=== PATIENT | male | born 1945 | race Caucasian/White ===

== ENCOUNTER 2020-06-08 14:22 | Outpatient (CLI) | payer MEDICARE, MEDICAID, SELFPAY ==
--- NOTE | ~2020-06-08 | US_ITS ---
EXAMINATION: US retroperitoneal comp DATE: 06/08/2020 15:42 INDICATION: Chronic kidney disease stage III TECHNIQUE: Multiple grayscale and Doppler ultrasound images of the kidneys were obtained. COMPARISON: 03/23/2019 FINDINGS: The right kidney measures 12.7 x 4.4 x 5.6 cm and contains a 5.5 cm cyst. The left kidney m easures 10.6 x 6.4 x 5.2 cm and contains a 3.1 cm cyst. The kidneys demonstrate increased parenchymal echogenicity. There is no hydronephrosis. The bladder is normal. IMPRESSION: 1. Medical renal disease. Reviewed, dictated and finalized at location A. IMPRESSION: 1. Medical renal disease.
== END 2020-06-08 14:23 | disposition home or self-care (01) ==
LOC: ANHIMG 14:33
PROVIDERS: PCP Family Medicine; Visit Provider Internal Medicine Nephrology
DX: N18.3 Chronic kidney disease, stage 3 (moderate) (principal)
CPT/HCPCS: 76770

== ENCOUNTER 2021-04-30 12:45 | Emergency (ER) | payer MEDICARE, MEDICAID, SELFPAY ==
[2021-04-30] VITALS (11 sets, daily range): BP systolic 163–185; BP diastolic 67–99; PULSE 70–91; RESP 12–22; TEMP 36.8; O2SAT 89–99
--- NOTE | ~2021-04-30 | US_ITS ---
EXAMINATION: US right upper quadrant EXAM DATE: 04/30/2021 13:41 INDICATION: Right upper quadrant pain. TECHNIQUE: Multiple grayscale and Doppler images of the abdomen right upper quadrant were obtained (b y a technologist who performed the scan) and subsequently reviewed. There is no prior study for guerita garcia. FINDINGS: The pancreatic head and body are normal in appearance. The pancreatic tail is not visualized. The l iver has normal echogenicity and contour. There are no focal liver lesions identified. There is no evidence of intrahepatic biliary duct dilation. Portal venous flow was seen in the hepatopedal, nor mal direction and has normal Doppler waveform. No right-sided hydronephrosis. Right renal cyst measu ring 4-5 cm. Common bile duct measures 5 mm, which is normal. The gallbladder wall is normal in thickness, with ex pected amount of distention. No sonographic evidence of pericholecystic fluid. There is cholelithia sis. Technologist performing exam reports patient did not demonstrate sonographic Garcia's sign. P sharif note that this sign is less reliable in patients who have received pain medication. IMPRESSION: 1. Unremarkable abdominal ultrasound exam. Reviewed, dictated and finalized at location B.
[2021-04-30 12:57] LABS: Glucose Point of Care 205 mg/dl (65-105)
[2021-04-30] MEDS: ONDANSETRON INJ 4 MG/2 ML VIAL IV PUSH (13:43)
[2021-04-30 14:00] LABS: Basophils Absolute Auto 0.1 K/mm3 (0.0-0.1); Basophils Percent Auto 0.6 % (0.2-1.2); Eosinophils Absolute Auto 0.2 K/mm3 (0-0.3); Eosinophils Percent Auto 1.6 % (0-4.4); Hematocrit 43.3 % (42.0-52.0); Hemoglobin 14.5 g/dL (14.0-18.0); Immature Granulocyte Absolute 0.08 K/mm3 (0.00-0.031); Immature Granulocyte Percent A 0.7 % (0-0.5); Lymphocytes Absolute Auto 1.21 K/mm3 (0.9-3.2); Lymphocytes Percent Auto 10.1 % (18.3-44.2); Mean Corpuscular HGB Conc 33.5 g/dl (32-36); Mean Corpuscular Volume 92.5 fl (80-100); Mean Platelet Volume 10.3 fl (7.4-10.4); Monocytes Absolute Auto 1.3 K/mm3 (0.1-0.6); Monocytes Percent Auto 11.1 % (2.6-8.5); Neutrophils Absolute Auto 9.1 K/mm3 (1.3-6.7); Neutrophils Percent Auto 75.9 % (45.5-73.1); Platelet Count Result 196 k/mm3 (150-375); Red Blood Count 4.68 M/mm3 (4.6-6.20); Red Cell Distribution Width 14.4 % (11.5-14.5)
[2021-04-30 14:12] LABS: Alanine Aminotransferase 31 U/L (4-50); Albumin Level 4.3 g/dL (3.5-5.1); Alkaline Phosphatase 61 U/L (38-126); Anion Gap 11 mmol/L (8-16); Aspartate Amino Transferase 35 U/L (17-59); Bilirubin,Total 1.6 mg/dL (0.2-1.3); Blood Urea Nitrogen 25 mg/dL (9-20); Calcium 9.6 mg/dL (8.4-10.2); Carbon Dioxide 25 mmol/L (22-30); Chloride 102 mmol/L (98-107); Estimated CRCL calculation 58 ml/min; Estimated Glomerular Filt Rate 49; Glucose 203 mg/dL (75-110); Lipase 264 U/L (23-300); Potassium 4.2 mmol/L (3.4-5.0); Sodium 138 mmol/L (137-145)
[2021-04-30] MEDS: MORPHINE SULFATE (*CRX) 4 MG/ML INJ IV PUSH (14:40)
--- NOTE | 2021-04-30 15:40 | ED.GENADULT ---
HPI - General Adult General Chief complaint: Abdominal Pain Stated complaint: ABD PAIN Time Seen by Provider: 04/30/21 12:49 History of Present Illness HPI narrative: Patient is a 76-year-old male who presents ER with abdominal pain as well as nausea vomiting. Abdominal pain began earlier today. This along his mid and lower abdomen. Waxes and wanes in intensity. Has some intense pain that will cause some vomiting. No diarrhea or constipation. He is passing gas without issue. Has history of appendectomy. No urinary issues. Related Data Home Medications Medication Instructions Recorded Confirmed cranberry fruit 450 mg tablet 450 mg PO DAILY 02/14/21 multivitamin 1 tablet PO DAILY 02/14/21 omega-3 fatty acids 1,000 mg 1,000 mg PO DAILY 02/14/21 capsule turmeric root extract 500 mg 500 mg PO DAILY 02/14/21 capsule vitamin C 50 mg-biotin 1,250 mcg tablet PO 02/14/21 chewable tablet Allergies Allergy/AdvReac Type Severity Reaction Status Date / Time cephalexin Allergy Unknown Nausea Verified 04/30/21 13:02 lisinopril Allergy Unknown vascular Verified 04/30/21 13:02 rash Sulfa (Sulfonamide Allergy Unknown tongue Verified 04/30/21 13:02 Antibiotics) swelling Review of Systems Review of Systems: All systems reviewed & are unremarkable except as noted in HPI and below Constitutional: Constitutional: Denies chills, Denies fever(s) and Denies weakness ENT: Denies nasal congestion and Denies sore throat Cardiovascular: Cardiovascular: Denies chest pain and Denies radiating jaw, neck or arm pain Respiratory: Respiratory: Denies cough and Denies dyspnea Gastrointestinal: Gastrointestinal: Reports abdominal pain, Denies constipation, Denies heartburn, Denies diarrhea, Reports nausea and Reports vomiting Genitourinary: Genitourinary: Denies hematuria, Denies dysuria and Denies urinary frequency [facility] Past Medical History Medical History (Updated 04/30/21 @ 16:49 by Iftikhar Cassidy MD) Abdominal aortic aneurysm, without rupture Essential (primary) hypertension Gout Hypertensive chronic kidney disease with stage 1 through stage 4 chronic kidney disease, or unspecified chronic kidney disease Morbid obesity Obstructive sleep apnea (adult) (pediatric) 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 HEAD: Normocephalic, atraumatic. ENT: Mucous membranes moist. CHEST: Clear to auscultation. No respiratory distress. HEART: Irregular regular rate and rhythm. Normal peripheral pulses. ABDOMEN: Soft, mild right upper quadrant tenderness, protuberant abdomen, normal active bowel sounds. EXTREMITIES: Normal range of motion. 1+ edema. SKIN: Warm, dry, no rash. NEURO: Alert and oriented x3. PSYCH: Normal mood and affect. Course Course Emergency Course: Pain improved with morphine. Reports discomfort is in lower abdomen not right upper quadrant. Will give pain medication nausea medication for home. Educated on cholelithiasis and low-fat diet. Needs follow-up with general surgery. No right upper quadrant tenderness on repeat exam. Also due to patient's body habitus when he lays down flat and falls asleep he has transient drop in his pulse oximeter reading. Likely represents LILLY. Also patient found to be in atrial fibrillation. This is new diagnosis. He has a chads 2 score of 3. I have contacted the cardiology o
--- NOTE | 2021-04-30 15:51 | ECG_ITS ---
Measurements Intervals [place] Rate: 79 P: [place]: 0 QRS: 12 QRSD: 105 T: 51 QT: 396 QTc: 456 Interpretive Statements ATRIAL FIBRILLATION BORDERLINE ST-T WAVE ABNORMALITY- HIGH LATERAL LEADS BASELINE ARTIFACT- I, II, III, AVR, AVL, AVF, V1-V6 ABNORMAL ECG Electronically Signed On 04-30-2021 16:06:43 CDT by Mike Izquierdo D.O.
[2021-04-30] MEDS: RIVAROXABAN 20 MG TABLET PO (16:38)
== END 2021-04-30 17:00 | disposition home or self-care (01) ==
PROVIDERS: Emergency Provider Emergency Medicine; PCP Family Medicine
DX: K80.20 Calculus of gallbladder without cholecystitis without obstruction (principal); I48.91 Unspecified atrial fibrillation; M10.9 Gout, unspecified; I12.9 Hypertensive chronic kidney disease with stage 1 through stage 4 chronic kidney disease, or unspecified chronic kidney disease; E11.22 Type 2 diabetes mellitus with diabetic chronic kidney disease; N18.9 Chronic kidney disease, unspecified; E11.40 Type 2 diabetes mellitus with diabetic neuropathy, unspecified; G47.33 Obstructive sleep apnea (adult) (pediatric); Z79.84 Long term (current) use of oral hypoglycemic drugs
CPT/HCPCS: 36415; 76705; 80053; 82948; 83690; 85025; 93005; 96374; 96375; 99284; A9270; J2270; J2405

== ENCOUNTER 2022-03-12 00:03 | Observation (INO) | payer MEDICARE, MEDICAID, SELFPAY ==
[2022-03-12] VITALS (8 sets, daily range): BP systolic 133–164; BP diastolic 49–68; PULSE 56–62; RESP 14–19; TEMP 36.2–37.4; O2SAT 95–99; BMI 40.6
--- NOTE | ~2022-03-12 | XR_ITS ---
EXAMINATION: XR chest 2V DATE: 03/12/2022 02:03 INDICATION: Chest pain. TECHNIQUE: Frontal and lateral views of the chest were obtained. COMPARISON: CT abdomen and pelvis 11/08/2018, chest CT 08/12/2013 FINDINGS: Calcified right lung nodules and calcified right hilar lymph nodes are consistent with old granulomatous disease. There are mild airspace opacities in the lower lung zones. No pleural effusion or pneumothorax. The heart size is normal. IMPRESSION: 1. Mild airspace opacities in the lower lung zones, likely atelectasis. Reviewed, dictated and finalized at location A.
--- NOTE | ~2022-03-12 | CT_ITS ---
EXAMINATION: CTA chest PE protocol DATE: 03/12/2022 11:41 INDICATION: Pleuritic chest pain. TECHNIQUE: Computed tomography angiography (CTA) of the chest was performed with 100 mL Omnipaque-350 intravenous contrast timed to evaluate the pulmonary arteries. Coronal maximum intensity projection 3D-reconstructions were created by the technologist. Automated exposure control and iterative reconst ruction technique were employed. The dose-length product was 1063.52 mGy-cm. COMPARISON: CT abdomen and pelvis 11/08/2018 FINDINGS: There is mild emphysema. The lungs demonstrate mild atelectasis. Calcified right lung nodul es and calcified right hilar lymph nodes are consistent with old granulomatous disease. There is smoo th septal thickening in the lungs, consistent with mild pulmonary edema. No pleural effusion. The hea rt size is normal. No pericardial effusion. There is no pulmonary embolus. There is moderate thoracic spondylosis. IMPRESSION: 1. No pulmonary embolus. 2. Mild emphysema. 3. Mild pulmonary edema. Reviewed, dictated and finalized at location A.
--- NOTE | 2022-03-12 00:15 | ECG_ITS ---
Measurements Intervals [place] Rate: 60 P: 73 MS: 243 QRS: 5 QRSD: 98 T: 75 QT: 441 QTc: 441 Interpretive Statements SINUS RHYTHM WITH FIRST DEGREE AV BLOCK COMPARED TO ECG 04/30/2021 15:56:13 SINUS RHYTHM NOW PRESENT FIRST DEGREE AV BLOCK NOW PRESENT Electronically Signed On 03-13-2022 13:22:23 CDT by Melida Corey M.D.
[2022-03-12 00:25] LABS: Basophils Absolute Auto 0.1 K/mm3 (0.0-0.1); Basophils Percent Auto 0.8 % (0.2-1.2); Eosinophils Absolute Auto 0.5 K/mm3 (0-0.3); Eosinophils Percent Auto 3.7 % (0-4.4); Hematocrit 38.3 % (42.0-52.0); Hemoglobin 12.7 g/dL (14.0-18.0); Immature Granulocyte Percent A 0.8 % (0-0.5); Lymphocytes Absolute Auto 1.84 K/mm3 (0.9-3.2); Lymphocytes Percent Auto 14.5 % (18.3-44.2); Mean Corpuscular HGB Conc 33.2 g/dl (32-36); Mean Corpuscular Hemoglobin 30.8 pg (26-34); Mean Corpuscular Volume 92.7 fl (80-100); Monocytes Absolute Auto 1.2 K/mm3 (0.1-0.6); Monocytes Percent Auto 9.2 % (2.6-8.5); Platelet Count Result 292 k/mm3 (150-375); Red Blood Count 4.13 M/mm3 (4.6-6.20); Red Cell Distribution Width 13.5 % (11.5-14.5); White Blood Count 12.7 K/mm3 (4.5-10.0)
[2022-03-12 00:36] LABS: INR 2.6; Prothrombin Time 26.6 Seconds (11.1-14.7)
[2022-03-12 00:37] LABS: Partial Thromboplastin Time 66.3 SECONDS (22.3-36.8)
[2022-03-12 00:43] LABS: Alanine Aminotransferase 25 U/L (4-50); Albumin Level 3.8 g/dL (3.5-5.1); Alkaline Phosphatase 64 U/L (38-126); Anion Gap 4 mmol/L (8-16); Aspartate Amino Transferase 49 U/L (17-59); Blood Urea Nitrogen 41 mg/dL (9-20); Calcium 8.4 mg/dL (8.4-10.2); Carbon Dioxide 33 mmol/L (22-30); Chloride 97 mmol/L (98-107); Estimated CRCL calculation 45 ml/min; Estimated Glomerular Filt Rate 37; Glucose 214 mg/dL (65-110); Lipase 211 U/L (23-300); Potassium 4.7 mmol/L (3.4-5.0); Sodium 134 mmol/L (137-145)
[2022-03-12 00:48] LABS: Troponin I < 0.012 ng/mL (0.000-0.034)
--- NOTE | 2022-03-12 01:26 | ED.CHESTPAIN ---
HPI - Chest Pain General Chief Complaint: Chest Pain Stated Complaint: CHEST PAIN, BACK PAIN Time Seen by Provider: 03/12/22 01:19 Source: patient Limitations: no limitations History of Present Illness HPI narrative: Pt presents with chest pain since about 1700 tonight. Pt says it is constant. Pt also complains of SOB with exertion for the last two weeks. Pt sasy the CP goes through to his back. MD complaint: chest pain and chest heaviness Onset (ago): hour(s) (8) Timing of current episode: constant Prior episodes: No Onset: during rest and during exertion Pain location: substernal Pain radiation: back Severity: moderate Quality: heaviness Relieving factors: nothing Exacerbating factors: exertion Risk Factors Coronary artery disease risk factors: diabetes, hyperlipidemia and hypertension Related Data Home Medications Medication Instructions Recorded Confirmed cranberry fruit 450 mg tablet 450 mg PO DAILY 02/14/21 09/18/21 multivitamin 1 tablet PO DAILY 02/14/21 09/18/21 omega-3 fatty acids 1,000 mg 1,000 mg PO DAILY 02/14/21 09/18/21 capsule turmeric root extract 500 mg 500 mg PO DAILY 02/14/21 09/18/21 capsule vitamin C 50 mg-biotin 1,250 mcg tablet PO 02/14/21 09/18/21 chewable tablet oregano oil 1,500 mg capsule mg PO PRN 07/11/21 09/18/21 furosemide 40 mg tablet 40 mg PO .prn tablet 02/21/22 Allergies Allergy/AdvReac Type Severity Reaction Status Date / Time cephalexin Allergy Unknown Nausea Verified 02/21/22 10:40 lisinopril Allergy Unknown vascular Verified 02/21/22 10:40 rash Sulfa (Sulfonamide Allergy Unknown tongue Verified 02/21/22 10:40 Antibiotics) swelling Review of Systems Review of Systems: All systems reviewed & are unremarkable except as noted in HPI and below PMFSH Past Medical History Medical History Abdominal aortic aneurysm, without rupture Essential (primary) hypertension Gout History of varicella Hypertensive chronic kidney disease with stage 1 through stage 4 chronic kidney disease, or unspecified chronic kidney disease LAE (left atrial enlargement) Morbid obesity Obstructive sleep apnea (adult) (pediatric) 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 Sibling AIDS Sibling Ovarian carcinoma Sibling Lung cancer Other Family history of malignant neoplasm Social History Social History Smoking packs per day: 3 Smoking cigarettes per day: 60.0 Years smoked: 50 Smoking pack-years: 150.00 Smoking status: Former smoker Tobacco type: cigarettes Smoking end date: 11/17/91 Alcohol intake: never Exam Const: General: cooperative Nutritional Appearance: overweight Orientation/consciousness: patient oriented x3 Limitations: no limitations Neck: Neck: normal visual inspection and full ROM Chest: Chest palpation & inspection: normal inspection of the chest Resp: Effort & Inspection: normal respiratory effort Auscultation: clear to auscultation bilaterally Cardio: Rate: regular rate Rhythm: regular rhythm GI: GI Palp: Yes Soft to palpation Auscultation: normal bowel sounds Skin: General skin exam: normal color Neuro: General: oriented to person and patient oriented x3 Cranial nerves: Yes CN's II-XII intact bilaterally Cognition (Neuro): normal cognition Speech: normal speech Gait exam (Neuro): Normal gait present Motor exam (neuro): 5/5 motor strength
--- NOTE | 2022-03-12 01:56 | PC.NURSE ---
Pt to XY at this time.
[2022-03-12] MEDS: NITROGLYCERIN 0.4 MG/HR PATCH 1 PATCH TRANSDERM ×2 (02:37→08:18)
--- NOTE | 2022-03-12 03:35 | ADMGEN ---
This patient, Boris Hernandez, was admitted to [facility] Room 313-01. Patient/family oriented to hospital policies and general routines including ID bracelet, bed and alarms, visiting hours, pain management, procedures, bathroom and other care routines, personal items, smoking policy, room service/diet, and visiting hours. Information on how to activate the Rapid Response Team has been discussed. Patient/Family are encouraged to report perceived risks to care and to ask questions if they do not understand what they are told or what they should do.
[2022-03-12 03:40] LABS: Troponin I < 0.012 ng/mL (0.000-0.034)
[2022-03-12 06:40] LABS: Troponin I < 0.012 ng/mL (0.000-0.034)
[2022-03-12] MEDS: NEBIVOLOL HCL 5 MG TABLET 20 MG PO (10:45)
[2022-03-12] MEDS: allopurinoL 300 MG TABLET PO (10:46)
[2022-03-12] MEDS: ATORVASTATIN 10 MG TABLET PO (10:46)
[2022-03-12] MEDS: FUROSEMIDE 40 MG TABLET PO (10:46)
[2022-03-12 11:33] LABS: Hemoglobin A1C 6.3 % (<5.7)
--- NOTE | 2022-03-12 15:54 | PM.SD2 ---
Same Day Admit/Disch: HPI History of Present Illness Chief complaint: Chest Pain Narrative: Date of service: 03/12/2022 Boris Hernandez is a 76 year old male with a history of abdominal aortic aneurysm monitored by his PCP, hypertension, chronic kidney disease established with Nephrology, LILLY on CPAP, and type 2 diabetes mellitus, atrial fibrillation on chronic anticoagulation who presented to the emergency department on 03/12/2022 with complaints of right-sided chest discomfort. He starts by telling me that two things have been bothering him before. The first is that he has had a productive cough constantly for the past week or two. The only thing that has seemed to help it is oil of oregano. He also states that for the past 2-3 weeks he has been more short of breath. Last night around 5:00 p.m. he developed right-sided chest discomfort near his shoulder and his right upper chest wall. He stated that with this it was hard for him to breathe. He described it as ?like a sprained ankle? in his chest. He noted this pain was worse with deep breaths or with movement. He states he did not want to move as if he moved too much it felt as though someone was punching him. Around 11 p.m. he called EMS because the pain was not improving. On arrival to the ED, his vital signs were stable, troponin negative, EKG showed sinus rhythm with 1st degree av block, and CXR showed mild airspace opacities of the lower lung zones. He was admitted to the hospitalist service for further evaluation and management. At the time of my evaluation he stated he was feeling about 10% better. He had no pain unless he was moving. He tells me he felt the pain was ?due to bone and muscle. He denied hemoptysis. Denied palpitations. Denied increased edema of his lower extremities, but did state he does have some chronic mild edema for which he had recently been started on Lasix per his oven baker, Dr. Gomse. He has been compliant with his Xarelto. His cough has improved. He does endorse decreased activity tolerance which she attributes to neuropathy in his lower extremities restricting his activity. Atypical chest pain not concerned for cardiac etiology. ACS ruled out by negative troponins. Most likely musculoskeletal based on history. Due to pleuritic nature of pain, CTA of the chest was performed to rule out pulmonary embolism. CTA was negative for PE but did show mild pulmonary edema. Most likely mild pulmonary edema triggered his cough which subsequently resulted in musculoskeletal chest discomfort. He maintained adequate oxygen saturations and did not require supplemental oxygen. Clinical picture not consistent with CHF exacerbation. Will increase his furosemide to 40 mg once daily dosing. He states he is currently taking every other day. He does have chronic kidney disease, therefore will repeat a BMP in 1 week to ensure renal function is tolerating increased dose of furosemide. CHF education provided and heart healthy diet reinforced. He will follow-up with his oven baker as scheduled. JASPER inhibitor use considered as etiology of cough, however patient endorses recent productive cough that has improved, making this less likely. With regards to his musculoskeletal pain, will continue with supportive care. Tylenol as needed for pain. Ice and heat as needed. Lidocaine patch for comfort. His pain was overall well controlled and he felt comfortable with plans for discharge home. Discussed worrisome chest pain symptoms for which to seek emergency care. He will follow-up his PCP in 1 week for further monitoring. [facility] Past Medical History Medical History (Updated 03/12/22 @ 16:19 by Angelita Bassett PA-C) Abdominal aortic aneurysm, without rupture Atrial fibrillation CHF (congestive heart failure) Essential (primary) hypertension Gout History of varicella Hypertensive chronic kidney disease with stage 1 through stage 4 chronic kidney disease, or unspecified chronic kidney
[2022-03-12] MEDS: ACETAMINOPHEN 325 MG TABLET 650 MG PO (16:14)
[2022-03-12] MEDS: LIDOCAINE 5% PATCH 1 PATCH TRANSDERM (16:15)
== END 2022-03-12 17:10 | disposition home or self-care (01) ==
LOC: ANHED 02:13 → ANH3MEDSUR 03:09
PROVIDERS: Physician Assistant; Admitting Provider Internal Medicine; Emergency Provider Emergency Medicine; PCP Family Medicine; Visit Provider Internal Medicine
DX: R07.89 Other chest pain (principal); R05.9 Cough, unspecified; E78.5 Hyperlipidemia, unspecified; I71.4 Abdominal aortic aneurysm, without rupture; G47.33 Obstructive sleep apnea (adult) (pediatric); I48.91 Unspecified atrial fibrillation; Z79.01 Long term (current) use of anticoagulants; I50.9 Heart failure, unspecified; N18.9 Chronic kidney disease, unspecified; I13.0 Hypertensive heart and chronic kidney disease with heart failure and stage 1 through stage 4 chronic kidney disease, or unspecified chronic kidney disease; E11.22 Type 2 diabetes mellitus with diabetic chronic kidney disease; E11.42 Type 2 diabetes mellitus with diabetic polyneuropathy; E66.01 Morbid (severe) obesity due to excess calories; Z68.41 Body mass index [BMI] 40.0-44.9, adult; Z87.891 Personal history of nicotine dependence; E11.65 Type 2 diabetes mellitus with hyperglycemia
CPT/HCPCS: 36415; 71046; 71275; 80053; 83036; 83690; 84484; 85025; 85610; 85730; 93005; 99285; A9270; G0378; Q9967

== ENCOUNTER 2022-05-10 09:28 | Outpatient (CLI) | payer MEDICARE, MEDICAID, SELFPAY ==
--- NOTE | ~2022-05-10 | US_ITS ---
EXAMINATION: US aorta DATE: 05/10/2022 10:18 INDICATION: Abdominal aortic aneurysm without rupture TECHNIQUE: Grayscale, color Doppler, and pulsed Doppler images of the aorta and common iliac arteries were obtained. COMPARISON: CT dated 11/08/2018 FINDINGS: The proximal aorta measures 2.2 cm. The mid aorta measures 2.8 cm. Fusiform infrarenal abdominal aort ic aneurysm with the distal aorta measuring up to 5.0 cm. The right common iliac artery measures 1.0 cm. The left common iliac artery measures 1.1 cm. IMPRESSION: 1. Unchanged 5.0 cm fusiform infrarenal abdominal aortic aneurysm. Reviewed, dictated and finalized at location B.
== END 2022-05-10 09:29 | disposition home or self-care (01) ==
PROVIDERS: PCP Family Medicine; Visit Provider Physician Assistant
DX: I71.4 Abdominal aortic aneurysm, without rupture (principal)
CPT/HCPCS: 76775

== ENCOUNTER 2022-10-07 11:55 | Inpatient (IN) | payer MEDICARE, MEDICAID, SELFPAY ==
[2022-10-07] VITALS (35 sets, daily range): BP systolic 115–155; BP diastolic 46–78; PULSE 54–67; RESP 12–19; TEMP 36.6–37.1; O2SAT 95–100; BMI 42.7
--- NOTE | ~2022-10-07 | US_ITS ---
EXAMINATION: US renal BI DATE: 10/07/2022 23:18 INDICATION: Acute on chronic renal failure TECHNIQUE: Multiple grayscale and Doppler ultrasound images of the kidneys were obtained. COMPARISON: 06/08/2020 FINDINGS: The right kidney measures 14.4 x 5.6 x 6.0 cm. The left kidney measures 9.8 x 5.5 x 6.4 cm. The kidne ys demonstrate increased parenchymal echogenicity and cortical scarring/lobulation. 6.2 cm simple rig ht upper pole cyst. 3.0 cm left midpole simple cyst. There is no hydronephrosis. The bladder is myles l. IMPRESSION: Bilateral simple cysts. Medical renal disease. Reviewed, dictated and finalized at location K. ENTARY MATH TUTOR
--- NOTE | ~2022-10-07 | US_ITS ---
EXAMINATION: US venous doppler [facility] DATE: 10/07/2022 15:13 INDICATION: Lower limb edema. TECHNIQUE: Grayscale ultrasound images without and with compression and Doppler ultrasound images of the bilateral lower extremity veins were obtained. COMPARISON: None. FINDINGS: The visualized portions of right common femoral vein, profunda (deep) femoral vein, femoral vein, pop liteal vein, posterior tibial veins, and greater saphenous vein outflow are patent. There is thrombus in the right peroneal veins. The visualized portions of left common femoral vein, profunda femoral vein, femoral vein, popliteal v ein, peroneal veins, posterior tibial veins, and greater saphenous vein outflow are patent. IMPRESSION: 1. Deep vein thrombosis involving the right peroneal veins. Reviewed, dictated and finalized at location A. ILIZER MIXER
--- NOTE | ~2022-10-07 | CT_ITS ---
EXAMINATION: CT brain wo con DATE: 10/08/2022 15:57 INDICATION: pupils different sizes . TECHNIQUE: Computed tomography (CT) of the head was performed without intravenous contrast. The mA wa s adjusted according to patient size. Iterative reconstruction technique was employed. The dose-lengt h product was 605.33 mGy-cm. COMPARISON: None FINDINGS: No acute intracranial hemorrhage or extra-axial fluid collection. No hydrocephalus, mass, or herniation. No acute ischemic infarct. Unremarkable dural venous sinus attenuation. No acute osseous abnormality. The aerated spaces are clear. Mild atrophy and chronic white matter change. Atherosclerotic intracranial calcification. Chronic lef t parietal infarct. IMPRESSION: No acute intracranial process. Reviewed, dictated and finalized at location K. AISER IRRIGATION TAX
--- NOTE | ~2022-10-07 | XR_ITS ---
EXAMINATION: XR chest 2V 10/07/2022 13:07 INDICATION: CHF. Lower extremity swelling. PROCEDURE: 2 view chest COMPARISON: 03/12/2022 FINDINGS: The lungs are clear. The cardiomediastinal silhouette is within normal limits. There are no pleural effusions. There is no pneumothorax suspected. There are calcified granulomas of the rig ht lung. IMPRESSION: 1: NO ACUTE CARDIOPULMONARY DISEASE. Reviewed, dictated and finalized at location B. SPECIALIST
--- NOTE | 2022-10-07 12:16 | ECG_ITS ---
Measurements Intervals [place] Rate: 56 P: -68 [place]: 190 QRS: -10 QRSD: 86 T: 45 QT: 465 QTc: 451 Interpretive Statements SINUS BRADYCARDIA LOW QRS VOLTAGE IN PRECORDIAL LEADS BASELINE ARTIFACT- I, II, III, AVR, AVL, AVF, V1-V6 BORDERLINE ECG COMPARED TO ECG 03/12/2022 00:22:50 SINUS BRADYCARDIA NOW PRESENT Electronically Signed On 10-07-2022 14:14:33 HOTEL ASSISTANT MANAGER by Mike Izquierdo D.O.
[2022-10-07 12:49] LABS: Basophils Absolute Auto 0.1 K/mm3 (0.0-0.1); Basophils Percent Auto 0.9 % (0.2-1.2); Eosinophils Absolute Auto 0.5 K/mm3 (0-0.3); Eosinophils Percent Auto 6.4 % (0-4.4); Hematocrit 40.4 % (42.0-52.0); Hemoglobin 13.7 g/dL (14.0-18.0); Immature Granulocyte Absolute 0.05 K/mm3 (0.00-0.031); Immature Granulocyte Percent A 0.7 % (0-0.5); Lymphocytes Absolute Auto 1.49 K/mm3 (0.9-3.2); Lymphocytes Percent Auto 19.9 % (18.3-44.2); Mean Corpuscular HGB Conc 33.9 g/dl (32-36); Mean Corpuscular Hemoglobin 30.9 pg (26-34); Mean Platelet Volume 10.3 fl (7.4-10.4); Monocytes Absolute Auto 0.7 K/mm3 (0.1-0.6); Neutrophils Absolute Auto 4.7 K/mm3 (1.3-6.7); Neutrophils Percent Auto 63.1 % (45.5-73.1); Platelet Count Result 224 k/mm3 (150-375); Red Blood Count 4.44 M/mm3 (4.6-6.20); White Blood Count 7.5 K/mm3 (4.5-10.0)
[2022-10-07 12:59] LABS: INR 1.6; Prothrombin Time 18.4 Seconds (11.1-14.7)
[2022-10-07 13:00] LABS: Partial Thromboplastin Time 38.4 SECONDS (22.3-36.8)
--- NOTE | 2022-10-07 13:02 | ED.EXTPRO ---
HPI - Extremity Problem General Chief complaint: Extremity Problem,Nontraumatic <Kristina Rios PA-C - Last Filed: 10/07/22 18:09> Stated complaint: L ankle swelling <Kristina Rios PA-C - Last Filed: 10/07/22 18:09> Time Seen by Provider: 10/07/22 12:43 <Kristina Rios PA-C - Last Filed: 10/07/22 18:09> History of Present Illness HPI Narrative: Patient is a 77-year-old male with a history of diastolic HF here for evaluation of bilateral lower extremity swelling over the past 3 days. Patient denies injury or obvious etiology of swelling. He does have a history of CHF and takes 40 of Lasix daily, states he has been compliant with his medicine. He denies any chest pain but does note that he has been short of breath over the past several days with exertion. No fevers, chills, nausea, vomiting, cough or congestion. Patient does take amlodipine but states he has taken this for years without issues of leg swelling. Patient also has a history of abdominal aortic aneurysm. He is scheduled to get this repaired, and is currently seeing cardiology for clearance; he is scheduled for a cath at the end of this month. <Kristina Rios PA-C - Last Filed: 10/07/22 18:09> Related Data Home medications: Home Medications Medication Instructions Recorded Confirmed furosemide 40 mg tablet 40 mg PO DAILY 02/21/22 10/07/22 nebivolol 20 mg tablet (Bystolic) 20 mg PO DAILY 03/12/22 10/07/22 amlodipine 10 mg tablet 10 mg PO DAILY 06/26/22 10/07/22 lidocaine 5 % topical patch See Rx Instructions .Route 10/07/22 10/07/22 (Lidoderm) .COMPLEX PRN Pain <MIHAI Wall Last Filed: 10/07/22 18:09> Allergies/Adverse reactions: Allergies Allergy/AdvReac Type Severity Reaction Status Date / Time cephalexin Allergy Unknown Nausea Verified 10/07/22 12:01 lisinopril Allergy Unknown vascular Verified 10/07/22 12:01 rash Sulfa (Sulfonamide Allergy Unknown tongue Verified 10/07/22 12:01 Antibiotics) swelling <Kristina Rios PA-C - Last Filed: 10/07/22 18:09> Review of Systems Review of Systems: Gen: Denies fevers or chills Eyes: Denies eye pain or visual change ENT: Denies congestion Respiratory: Reports shortness of breath. Denies cough CV: Denies chest pain or palpitations GI: Denies abdominal pain nausea, emesis or diarrhea : denies burning, urgency, frequency or hematuria Musculoskeletal: Reports bilateral lower extremity swelling. Denies back pain or muscle pain Neuro: Denies numbness, tingling, weakness or focal weakness Skin: Denies rash Except as documented, all other systems reviewed and negative <Kristina Rios PA-C - Last Filed: 10/07/22 18:09> [facility] Past Medical History Medical History: Medical History Abdominal aortic aneurysm, without rupture Atrial fibrillation CHF (congestive heart failure) Essential (primary) hypertension Gout History of varicella Hypertensive chronic kidney disease with stage 1 through stage 4 chronic kidney disease, or unspecified chronic kidney disease LAE (left atrial enlargement) Morbid obesity Obstructive sleep apnea (adult) (pediatric) 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
[2022-10-07 13:45] LABS: Alanine Aminotransferase 21 U/L (6-50); Albumin Level 4.2 g/dL (3.5-5.1); Alkaline Phosphatase 74 U/L (38-126); Anion Gap 10 mmol/L (8-16); Aspartate Amino Transferase 23 U/L (17-59); Blood Urea Nitrogen 43 mg/dL (9-20); Calcium 9.1 mg/dL (8.4-10.2); Carbon Dioxide 29 mmol/L (22-30); Chloride 100 mmol/L (98-107); Estimated CRCL calculation 43 ml/min; Estimated Glomerular Filt Rate 34; Glucose 145 mg/dL (65-110); Potassium 4.6 mmol/L (3.4-5.0); Sodium 139 mmol/L (137-145)
[2022-10-07 13:51] LABS: NT Pro B Type Natriuretic Pept 193 pg/mL (5-100); Troponin I < 0.012 ng/mL (0.000-0.034)
[2022-10-07 14:25] LABS: Appearance Urine Clear (Clear); Bilirubin Urine Negative (Negative); Blood Urine Trace-lysed (Negative); Color Urine Yellow (Yellow); Glucose Urine UA 2+ mg/dL (Negative); Ketones Urine Negative (Negative); Leukocyte Esterase Ur Negative LEU/UL (Negative); Nitrate Urine Negative (Negative); Protein Urine Negative (Negative); Urobilinogen Urine 0.2 mg/dL (<2.0); pH Urine 5.5 (5.0-9.0)
[2022-10-07 14:36] LABS: Mucus Urine Rare /lpf; RBC Urine 0-2 /hpf (0-2); Squamous Epithelial Cell Urine Rare /hpf (Few); WBC Urine 0-3 /hpf
[2022-10-07 14:37] LABS: Add Urine Microscopic? YES
--- NOTE | 2022-10-07 15:00 | PC.NURSE ---
Patient off unit to US.
--- NOTE | 2022-10-07 15:48 | PC.NURSE ---
Patient's Daughter - Rudy Hernandez [phone]
[2022-10-07] MEDS: FONDAPARINUX SODIUM 5 MG/0.4 ML SYRINGE 10 MG SUB-Q (17:29)
--- NOTE | 2022-10-07 18:11 | ADMGEN ---
This patient, Boris Hernandez, was admitted to Medical Room 254-01. Patient/family oriented to hospital policies and general routines including ID bracelet, bed and alarms, visiting hours, pain management, procedures, bathroom and other care routines, personal items, smoking policy, room service/diet, and visiting hours. Information on how to activate the Rapid Response Team has been discussed. Patient/Family are encouraged to report perceived risks to care and to ask questions if they do not understand what they are told or what they should do.
--- NOTE | 2022-10-07 22:08 | PM.IMHP ---
H&P: HPI History of Present Illness Date/Time: 10/07/22 22:08 Chief Complaint: Lower extremity swelling Narrative: This is a 77-year-old male patient who came to the emergency room to be evaluated for lower extremity swelling that has increased over the last 3 days. He has not had any previous injury to his lower extremities. He does have a history of congestive heart failure and states that he is compliant with his Lasix. He denies any chest pain or shortness of breath. The patient does have a history of abdominal aortic aneurysm and he is scheduled to get this repaired after cardiac clearance. The patient is scheduled for cardiac catheterization at the end of the month. His H&H is 13.7 and 40.4 which is above his baseline. His INR is 1.6 and he is on Xarelto. Creatinine is 1.9. With a baseline of 1.28 to 1.8. His blood sugar was 145 today. His last A1c was 6.3 on 03/12/2022. Venous Doppler was read as deep vein thrombosis involving the right peroneal veins. Chest x-ray was read as no acute cardiopulmonary disease. Dr. Heredia was consulted and the patient was started on Arixtra. Patient being admitted to observation status on the date of service of 10/07/2022. Review of Systems Review of Systems: See HPI All systems reviewed & are unremarkable except as noted in HPI and below Constitutional: Constitutional: Reports as per HPI and Reports no additional constitutional complaints Eyes: Eyes: Reports as per HPI and Reports no additional eye complaints ENT: Reports system reviewed and no additional complaints, except as documented and Reports Normal hearing present Cardiovascular: Cardiovascular: Reports no additional cardiovascular complaints Respiratory: Respiratory: Reports no additional respiratory complaints and Reports no additional respiratory complaints Gastrointestinal: Gastrointestinal: Reports as per HPI and Reports no additional gastrointestinal complaints Musculoskeletal: Musculoskeletal: Reports no additional musculoskeletal complaints Integumentary/Breasts: Skin/Breast: Reports system reviewed and no additional complaints, except as docu and Reports as per HPI Neurologic: Reports system reviewed and no additional complaints, except as documented, Reports as per HPI and Reports Normal hearing present Psychiatric: Psychiatric: Reports no additional psychiatric complaints and Reports as per HPI Endocrine: Endocrine: Reports no additional endocrine complaints Hematologic/Lymphatic: Hematologic/Lymphatic: Reports no additional hematologic/lymphatic complaints Allergic/Immunologic: Allergic/Immunologic: Reports no additional allergic/immunologic complaints ON LICENSE OF [facility] Past Medical History Medical History (Updated 11/21/22 @ 22:40 by Fanny Rodriguez NP) Abdominal aortic aneurysm, without rupture Atrial fibrillation CHF (congestive heart failure) Diabetic nephropathy associated with type 2 diabetes mellitus DVT (deep venous thrombosis) right leg Essential (primary) hypertension Gout History of varicella Hyperlipidemia Hypertension Hypertensive chronic kidney disease with stage 1 through stage 4 chronic kidney disease, or unspecified chronic kidney disease LAE (left atrial enlargement) Morbid obesity Obstructive sleep apnea (adult) (pediatric) 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
--- NOTE | 2022-10-08 | ECHO_ITS ---
Patient Info Name: Boris Hernandez Age: 77 years : 1945 Gender: Male Ht: 72 in Wt: 315 lbs BSA: 2.76 m2 HR: 60 bpm BP: 148 / 65 mmHg Heart Rhythm: Sinus Rhythm Exam Date: 10/08/2022 11:21 AM Exam Location: [facility] Pulmonary Patient Status: Outpatient Admit Date: 10/07/2022 Staff Ordering Physician: Fanny Rodriguez NP Automatic Coin Machine Mechanic: Abram Garcia RDCS, RT Attending Provider: Victor Manuel Franklin MD Referring Physician: Jennifer KILGORE; Exam Type: CA echo doppler color flow Study Info Indications I50.9 - Heart failure, unspecified Complete two-dimensional, color flow and Doppler transthoracic echocardiogram is performed. Summary 1. Complete two-dimensional, color flow and Doppler transthoracic echocardiogram is performed. 2. Normal left ventricular size with moderate concentric hypertrophy. Good systolic function of all segments with no segmental wall motion abnormalities. Ejection fraction is measured 56% (visually 55-60%). Grade 3 diastolic dysfunction is present. 3. Left atrial chamber dimension is mildly enlarged. 4. No significant valve disease. 5. Normal sinus rhythm. 6. Somewhat technically difficult study. Patient declined IV echo contrast, saying he had had an echo done recently at [place]. Left Ventricle Left ventricular chamber dimension is normal. Left ventricular systolic function is normal, estimated at 55-60%. There is moderately increased left ventricular wall thickness. Left ventricular septal wall motion is normal. The left ventricular diastolic function is grade III diastolic dysfunction. Right Ventricle Right ventricular chamber dimension is normal. Right ventricular systolic function is normal. Left Atria Left atrial chamber dimension is mildly enlarged. Right Atria Right atrial chamber dimension is normal. Aortic Valve The aortic valve is trileaflet. There is no aortic valve sclerosis. There is no aortic valve stenosis. There is no aortic valve regurgitation. Pulmonic Valve The pulmonic valve is normal. There is no pulmonic valve stenosis. There is no pulmonic regurgitation. Mitral Valve The mitral valve has normal leaflets. There is no mitral valve stenosis. There is trace mitral valve regurgitation. Tricuspid Valve The tricuspid valve leaflets are normal. There is no significant tricuspid valve stenosis. There is trace tricuspid valve regurgitation. No pulmonary hypertension, estimated pulmonary arterial systolic pressure is Empty. Pericardium/Pleural The pericardium appears normal. There is no pericardial effusion. Inferior Vena Cava Normal inferior vena cava with >50% collapse upon inspiration consistent with Empty right atrial pressure, Empty. Aorta The aortic root size at the sinus of Valsalva is normal. The prox ascending aorta size is normal. Left Ventricular Outflow Tract Name Value Normal LVOT 2D LVOT Diameter 2.0 cm LVOT Doppler LVOT Peak Gradient 4 mmHg LVOT Mean Gradient 2 mmHg LVOT VTI 20 cm LVOT VTI/AV VTI Ra
[2022-10-08 04:42] VITALS: BP 148/65; PULSE 63; RESP 16; TEMP 36.5; O2SAT 97
[2022-10-08 05:37] LABS: Alanine Aminotransferase 19 U/L (6-50); Alkaline Phosphatase 65 U/L (38-126); Anion Gap 12 mmol/L (8-16); Aspartate Amino Transferase 19 U/L (17-59); Bilirubin,Total 0.9 mg/dL (0.2-1.3); Blood Urea Nitrogen 40 mg/dL (9-20); Calcium 8.7 mg/dL (8.4-10.2); Carbon Dioxide 29 mmol/L (22-30); Chloride 98 mmol/L (98-107); Estimated CRCL calculation 41 ml/min; Estimated Glomerular Filt Rate 32; Glucose 132 mg/dL (65-110); Magnesium 2.3 mg/dL (1.6-2.3); Potassium 3.8 mmol/L (3.4-5.0); Sodium 139 mmol/L (137-145)
[2022-10-08 05:40] LABS: Lactic Acid Reflex 1.2 mmol/L (0.7-2.0)
[2022-10-08 08:48] LABS: Glucose Point of Care 159 mg/dl (65-105)
[2022-10-08] MEDS: allopurinoL 300 MG TABLET PO (09:10)
[2022-10-08] MEDS: NEBIVOLOL HCL 5 MG TABLET 20 MG PO (09:10)
[2022-10-08] MEDS: ATORVASTATIN 10 MG TABLET PO (09:10)
[2022-10-08] MEDS: amLODIPine BESYLATE 5 MG TABLET 10 MG PO (09:10)
--- NOTE | 2022-10-08 09:30 | P.PNIM_ITS ---
Progress Note: A&P Assessment and Plan (1) Acute deep vein thrombosis of right peroneal vein: Code(s): I82.451 - Acute embolism and thrombosis of right peroneal vein Status: Acute Assessment and Plan: * presented with complaints of lower extremity edema * Venous doppler showed DVT in the right peroneal veins * Xarelto at home * Currently on Arixtra * Hematology consulted * Will probably need to switch to eliquis (2) Abdominal aortic aneurysm, without rupture: Code(s): I71.4 - Abdominal aortic aneurysm, without rupture Status: Acute Assessment and Plan: * appears outpatient workup pending * Continue with vascular outpatient (3) Atrial fibrillation: Qualifiers: Atrial fibrillation type: unspecified Qualified Code(s): I48.91 - Unspecified atrial fibrillation Code(s): I48.91 - Unspecified atrial fibrillation Status: Acute Assessment and Plan: * Current Echo shows bradycardia rate of 56 * Continue home bystolic * Hold Xarelto, consider Eliquis * continue Arixtra for now (4) CHF (congestive heart failure): Code(s): I50.9 - Heart failure, unspecified Status: Acute Assessment and Plan: * Echo on 06/19/21 showed EF of 56% with grade 2 diastolic dysfunction * repeat echo ordered * lasix on hold with JULIENNE * continue home bystolic * daily weight * BNP 192 * Trend urine ouput * appears to be chronic diastolic heart failure with out exacerbation (5) Obstructive sleep apnea (adult) (pediatric): Code(s): G47.33 - Obstructive sleep apnea (adult) (pediatric) Status: Acute Assessment and Plan: -continue with home settings for CPAP (6) Type 2 diabetes mellitus with hyperglycemia: Qualifiers: Diabetes mellitus fci insulin use: unspecified fci insulin use status Qualified Code(s): E11.65 - Type 2 diabetes mellitus with hyperglycemia Code(s): E11.65 - Type 2 diabetes mellitus with hyperglycemia Status: Acute Assessment and Plan: * Current glucose is 132 * A1c 7.0 * Accu cheks ACHS * diabetic diet * iss * hold metformin for now * Trend glucose * Adjust therapy as indicated (7) Gout: Code(s): M10.9 - Gout, unspecified Status: Acute Assessment and Plan: -continue with allopurinol (8) Hyperlipidemia: Code(s): E78.5 - Hyperlipidemia, unspecified Status: Acute Assessment and Plan: -continue with atorvastatin (9) Hypertension: Code(s): I10 - Essential (primary) hypertension Status: Acute Assessment and Plan: * BP is 148/65 * Continue home amlodipine, bystolic * trend BP * adjust therapy as indicated (10) Acute on chronic renal failure: Code(s): N17.9 - Acute kidney failure, unspecified; N18.9 - Chronic kidney disease, unspecified Status: Acute Assessment and Plan: * BUN/Cr elevated at 40/2.00 * Stage 3 * Renal ultrasound indicates medical renal disease * Baseline appears to be 1.4-1.6 * hold lasix for now * UA does not indicate infection * Urine studies or
--- NOTE | 2022-10-08 09:30 | PM.IMPN ---
Progress Note: A&P Assessment and Plan (1) Acute deep vein thrombosis of right peroneal vein: Code(s): I82.451 - Acute embolism and thrombosis of right peroneal vein Status: Acute Assessment and Plan: presented with complaints of lower extremity edema Venous doppler showed DVT in the right peroneal veins Xarelto at home Currently on Arixtra Hematology consulted Will probably need to switch to eliquis (2) Abdominal aortic aneurysm, without rupture: Code(s): I71.4 - Abdominal aortic aneurysm, without rupture Status: Acute Assessment and Plan: appears outpatient workup pending Continue with vascular outpatient (3) Atrial fibrillation: Qualifiers: Atrial fibrillation type: unspecified Qualified Code(s): I48.91 - Unspecified atrial fibrillation Code(s): I48.91 - Unspecified atrial fibrillation Status: Acute Assessment and Plan: Current Echo shows bradycardia rate of 56 Continue home bystolic Hold Xarelto, consider Eliquis continue Arixtra for now (4) CHF (congestive heart failure): Code(s): I50.9 - Heart failure, unspecified Status: Acute Assessment and Plan: Echo on 06/19/21 showed EF of 56% with grade 2 diastolic dysfunction repeat echo ordered lasix on hold with JULIENNE continue home bystolic daily weight BNP 192 Trend urine ouput appears to be chronic diastolic heart failure with out exacerbation (5) Obstructive sleep apnea (adult) (pediatric): Code(s): G47.33 - Obstructive sleep apnea (adult) (pediatric) Status: Acute Assessment and Plan: -continue with home settings for CPAP (6) Type 2 diabetes mellitus with hyperglycemia: Qualifiers: Diabetes mellitus commercial baker helper insulin use: unspecified snf insulin use status Qualified Code(s): E11.65 - Type 2 diabetes mellitus with hyperglycemia Code(s): E11.65 - Type 2 diabetes mellitus with hyperglycemia Status: Acute Assessment and Plan: Current glucose is 132 A1c 7.0 Accu cheks ACHS diabetic diet iss hold metformin for now Trend glucose Adjust therapy as indicated (7) Gout: Code(s): M10.9 - Gout, unspecified Status: Acute Assessment and Plan: -continue with allopurinol (8) Hyperlipidemia: Code(s): E78.5 - Hyperlipidemia, unspecified Status: Acute Assessment and Plan: -continue with atorvastatin (9) Hypertension: Code(s): I10 - Essential (primary) hypertension Status: Acute Assessment and Plan: BP is 148/65 Continue home amlodipine, bystolic trend BP adjust therapy as indicated (10) Acute on chronic renal failure: Code(s): N17.9 - Acute kidney failure, unspecified; N18.9 - Chronic kidney disease, unspecified Status: Acute Assessment and Plan: BUN/Cr elevated at 40/2.00 Stage 3 Renal ultrasound indicates medical renal disease Baseline appears to be 1.4-1.6 hold lasix for now UA does not indicate infection Urine studies ordered Nephrology consulted thank you for your help (11) BMI 40.0-44.9, adult: Code(s): Z68.41 - Body mass index [BMI] 40.0-44.9, adult Status: Acute Assessment and Plan: BMI 42.8 Lifestyle changes 143 Kg translator interpreter consulted Education given Time Spent With Patient Time with patient: Greater than 35 minutes Subjective Date/time seen: 10/08/22929 Interval history: 10/08/22929 Patient seems a little anxious. He does not quite understand why his left leg is the 1 that he was complaining about however the right leg is the 1 with the DVT. Concern for possible DVT in the left leg since it was swollen for the last 2 weeks according to the patient. He denies a
[2022-10-08] MEDS: SODIUM CHLORIDE 0.9% IV 1,000 ML 50 ML IV CONT (10:39)
[2022-10-08 12:00] LABS: Glucose Point of Care 187 mg/dl (65-105)
--- NOTE | 2022-10-08 12:01 | PM.CNNEP ---
Assessment and Plan Assessment and plan (1) JULIENNE (acute kidney injury): Code(s): N17.9 - Acute kidney failure, unspecified Status: Acute Assessment and Plan: running a bit higher in the last few months was 2.2 - 2.3mg/dl by last 2 labs as an outpatient givne positive KAIT and paraproteinemia, will re-order tests follow trend of labs since a bit better than outpatient testing (2) Stage 3a chronic kidney disease: Code(s): N18.31 - Chronic kidney disease, stage 3a Status: Chronic Assessment and Plan: baseline creatinine per office records runs 1.3 - 1.7mg/dl due diabetes, hypertension, vascular disease, and age (3) Acute deep vein thrombosis of right peroneal vein: Code(s): I82.451 - Acute embolism and thrombosis of right peroneal vein Status: Acute Assessment and Plan: presence noted despite being on xarelto now on arixtra Hem/Onc consulted for further evaluation (4) CHF (congestive heart failure): Code(s): I50.9 - Heart failure, unspecified Status: Acute Assessment and Plan: appears compensated on bystolic and lasix (5) Hypertension: Code(s): I10 - Essential (primary) hypertension Status: Acute Assessment and Plan: reasonable control at this time follow trend of hemodynamics (6) Type 2 diabetes mellitus with hyperglycemia: Qualifiers: Diabetes mellitus usp insulin use: unspecified usp insulin use status Qualified Code(s): E11.65 - Type 2 diabetes mellitus with hyperglycemia Code(s): E11.65 - Type 2 diabetes mellitus with hyperglycemia Status: Acute Assessment and Plan: follow accuchecks glycemic control Will continue to follow. History of Present Illness Reason for Consult Consult date: 10/08/22 Reason for consult: acute renal failure (on chronic kidney disease) Chief Complaint Chief complaint: DVT Right Peroneal Vein History of Present Illness Narrative: The patient is a 77-year-old male with a past medical his history as outlined below who presented to [facility] Emergency room for further evaluation of worsening lower extremity edema/swelling. The patient states that the lower extremity edema seems to have increased over last 3-4 days without any specific inciting events. He does have a history of congestive heart failure but states he is compliant with his diuretic therapy. He denies any other associated symptoms the guarded chest pain, shortness of breath palpitations, dizziness, or lightheadedness. Given the ongoing and progressive nature of his lower extremity swelling, he came to the ER for further assessment. Workup and evaluation emergency room demonstrated patient be hemodynamically stable and in no acute distress. He did have significant lower extremity edema with the right lower extremity being slightly larger than the left. Routine blood test demonstrated a normal CBC and a BUN and creatinine was mildly elevated in comparison to his baseline. Venous Dopplers were done which demonstrated a deep vein thrombosis in the right peroneal veins. His chest x-ray demonstrated no acute cardiopulmonary disease. It was somewhat concerning that the patient has a DVT when he is already on Xarelto. Hematology/oncology was consulted from the ER and it was recommended that he be started on Arixtra. He was subsequently admitted to the hospital for further evaluation and therapy. Renal consultation was requested due to his acute kidney injury on chronic kidney disease. The patient normally follows in clinic with Dr. Justin Jaime for management of his chronic kidney disease. His baseline creatinine runs around 1.3-1.7 mg/dL with the presumed etiology being diabetes, hypertension, vascular disease, and age-related change. However, since late August 2022, his creatinine has been somewhat running higher in the 2.2-2.3 mg/dL range. He did receive a CT
[2022-10-08 13:39] LABS: Creatinine Urine 62.3 mg/dL; Urea Random Urine 647 MG/DL
[2022-10-08 13:40] LABS: Sodium Urine Random 41 meq/L
[2022-10-08 13:41] LABS: Creatinine Urine 66.6 mg/dL; Total Protein Urine Random 22 mg/dL; Ur Ttl Prot Creatinine Ratio 0.33 mg/mg (0-0.20)
[2022-10-08 13:51] VITALS: BP 124/71; PULSE 67; RESP 16; TEMP 36.7; O2SAT 98
[2022-10-08 16:53] LABS: Glucose Point of Care 152 mg/dl (65-105)
[2022-10-08] MEDS: FONDAPARINUX SODIUM 5 MG/0.4 ML SYRINGE 10 MG SUB-Q (16:53)
--- NOTE | 2022-10-08 19:30 | PDONCCN ---
HPI - Date of Consult Date/Time: 10/08/22 19:30 Requesting Physician: Victor Manuel Franklin MD Primary Care Provider: Fili Brown MD - Consult Narrative Reason for consult: Right lower extremity DVT Narrative: Boris Hernandez is a 77 year old male with multiple comorbidities including atrial fibrillation, congestive heart failure, abdominal aortic aneurysm, morbid obesity and hypertension came into the hospital with bilateral lower extremity swelling. Patient also has a history of diabetes and peripheral neuropathy. He denies any provoking factors including trauma and injury. He denies any recent travel history. Patient denies any previous history of thromboembolic events. Patient father had stroke. Patient started noticing worsening of left lower extremity swelling and as well as right lower extremity swelling. Ultrasound was performed that showed DVT involving right peroneal vein. Other labs showed hemoglobin of 13.7 with creatinine of 1.9. Patient has a history of renal insufficiency. Patient was started on Arixtra. He denies any other new complaints. Review of Systems - Review of Systems All systems reviewed & are unremarkable except as noted in HPI and bel - Neurologic Reports system reviewed and no additional complaints, except as documented, Reports hearing normal [facility] Medical History: Medical History (Last Updated 10/08/22 @ 07:40 by DELIA Mcgee) AAA (abdominal aortic aneurysm) Abdominal aortic aneurysm, without rupture Atrial fibrillation CHF (congestive heart failure) Cholelithiases DVT (deep venous thrombosis) right leg Essential (primary) hypertension Gout History of varicella Hyperlipidemia Hypertension Lichen planus Morbid obesity Obstructive sleep apnea (adult) (pediatric) Peripheral polyneuropathy Pulmonary HTN Symptomatic cholelithiasis Urticaria Vitamin B deficiency, unspecified Surgical History: Surgical History (Last Updated 10/07/22 @ 22:27 by Fanny Rodriguez NP) H/O colonoscopy with polypectomy History of appendectomy S/P knee surgery Status post cystoscopy Family History: Family History (Last Reviewed 10/07/22 @ 22:15 by Fanny Rodriguez NP) Father , age 64, stroke Diabetes mellitus Hypertension Family history of elevated blood lipids Cerebrovascular accident Sibling AIDS Sibling Ovarian carcinoma Sibling Lung cancer Other Family history of malignant neoplasm - Social History Social History: Social History (Last Reviewed 10/07/22 @ 22:15 by Fanny Rodriguez NP) Alcohol Use: Alcohol intake: never Substance Use: Substance use: never Others: Spiritual care concerns: No Smoking Status: Smoking status: Former smoker Smoking Pack-years: Smoking packs per day: 2 Smoking cigarettes per day: 40.0 Years smoked: 40 Smoking pack-years: 80.00 Social Determinants of Health: Has the Lack of Transportation Kept You From Medical Appointments or From Getting Medications?: No Within the Past 12 Months, Were You Worried Whether Your Food Would Run Out Before You Got Money to Buy More?: Never True What is Your Housing Situation Today?: I Do Not Have Housing Are You Worried That in the Next 2 Months, You May Not Have Your Own Housing to Live In?: No Do You Have Trouble Paying Your Heating Or Electricity Bill?: No Do You Have Trouble Paying For Medicines?: No Are You Currently Unemployed and Looking for Work?: No Highest Level of Education Completed: High School Diploma/GED Do You Have Trouble With Childcare or the Care of a Family Member?: No Exam - Vital Signs Vital Signs - 24 hr 10/07/22 19:40 10/08/22 04:42 10/08/22 13:51 Temperature 36.6 C 36.5 C 36.7 C Pulse Rate 66 63 67 Respiratory Rate 16 16 16 Blood Pressure 137/55 L 148/65 H 124/71 Pulse Oximetry 96 97 98 - Exam HEENT: EOMI, PERRLA, mucous membra
[2022-10-08 20:30] VITALS: BP 124/58; PULSE 56; RESP 20; TEMP 36.1; O2SAT 95
[2022-10-09 00:03] LABS: Glucose Point of Care 185 mg/dl (65-105)
[2022-10-09 04:50] VITALS: BP 132/59; PULSE 54; RESP 20; TEMP 36.1; O2SAT 96
[2022-10-09 06:07] LABS: Complement C3 145 mg/dL (88-165)
[2022-10-09 06:09] LABS: Alanine Aminotransferase 20 U/L (6-50); Albumin Level 3.9 g/dL (3.5-5.1); Alkaline Phosphatase 70 U/L (38-126); Anion Gap 9 mmol/L (8-16); Aspartate Amino Transferase 19 U/L (17-59); Bilirubin,Total 0.9 mg/dL (0.2-1.3); Blood Urea Nitrogen 34 mg/dL (9-20); Calcium 8.3 mg/dL (8.4-10.2); Carbon Dioxide 28 mmol/L (22-30); Chloride 102 mmol/L (98-107); Estimated CRCL calculation 43 ml/min; Estimated Glomerular Filt Rate 34; Glucose 155 mg/dL (65-110); Magnesium 2.4 mg/dL (1.6-2.3); Potassium 3.9 mmol/L (3.4-5.0); Sodium 139 mmol/L (137-145)
[2022-10-09 07:31] LABS: Basophils Absolute Auto 0.1 K/mm3 (0.0-0.1); Basophils Percent Auto 0.8 % (0.2-1.2); Eosinophils Absolute Auto 0.4 K/mm3 (0-0.3); Eosinophils Percent Auto 5.5 % (0-4.4); Hematocrit 39.6 % (42.0-52.0); Hemoglobin 13.3 g/dL (14.0-18.0); Immature Granulocyte Absolute 0.04 K/mm3 (0.00-0.031); Immature Granulocyte Percent A 0.6 % (0-0.5); Lymphocytes Absolute Auto 1.28 K/mm3 (0.9-3.2); Lymphocytes Percent Auto 17.6 % (18.3-44.2); Mean Corpuscular HGB Conc 33.6 g/dl (32-36); Mean Corpuscular Hemoglobin 30.6 pg (26-34); Mean Platelet Volume 10.2 fl (7.4-10.4); Monocytes Absolute Auto 0.7 K/mm3 (0.1-0.6); Monocytes Percent Auto 9.9 % (2.6-8.5); Neutrophils Absolute Auto 4.8 K/mm3 (1.3-6.7); Neutrophils Percent Auto 65.6 % (45.5-73.1); Platelet Count Result 184 k/mm3 (150-375); Red Blood Count 4.35 M/mm3 (4.6-6.20); Red Cell Distribution Width 14.1 % (11.5-14.5); White Blood Count 7.3 K/mm3 (4.5-10.0)
--- NOTE | 2022-10-09 07:38 | P.PNIM_ITS ---
Progress Note: A&P Assessment and Plan (1) Acute deep vein thrombosis of right peroneal vein: Code(s): I82.451 - Acute embolism and thrombosis of right peroneal vein Status: Acute Assessment and Plan: * presented with complaints of lower extremity edema * Venous doppler showed DVT in the right peroneal veins * Xarelto at home, change to Eliquis * Currently on Arixtra * Hematology consulted * will need outpatient follow up with hematology (2) Abdominal aortic aneurysm, without rupture: Code(s): I71.4 - Abdominal aortic aneurysm, without rupture Status: Acute Assessment and Plan: * appears outpatient workup pending * Continue with vascular outpatient (3) Atrial fibrillation: Qualifiers: Atrial fibrillation type: unspecified Qualified Code(s): I48.91 - Unspecified atrial fibrillation Code(s): I48.91 - Unspecified atrial fibrillation Status: Acute Assessment and Plan: * Current ECG shows bradycardia rate of 56 * Continue home bystolic * Hold Xarelto, Change to Eliquis * Stop Arixtra (4) CHF (congestive heart failure): Code(s): I50.9 - Heart failure, unspecified Status: Acute Assessment and Plan: * Echo EF 56% with grade 3 diastolic dysfunction * lasix on hold with JULIENNE * continue home bystolic * daily weight * BNP 192 * Trend urine output * appears to be chronic diastolic heart failure with out exacerbation (5) Obstructive sleep apnea (adult) (pediatric): Code(s): G47.33 - Obstructive sleep apnea (adult) (pediatric) Status: Acute Assessment and Plan: -continue with home settings for CPAP (6) Type 2 diabetes mellitus with hyperglycemia: Qualifiers: Diabetes mellitus half-way insulin use: unspecified half-way insulin use status Qualified Code(s): E11.65 - Type 2 diabetes mellitus with hyperglycemia Code(s): E11.65 - Type 2 diabetes mellitus with hyperglycemia Status: Acute Assessment and Plan: * Current glucose is 155 * A1c 7.0 * Accu cheks ACHS * diabetic diet * iss * hold metformin for now * Trend glucose * Adjust therapy as indicated (7) Gout: Code(s): M10.9 - Gout, unspecified Status: Acute Assessment and Plan: -continue with allopurinol (8) Hyperlipidemia: Code(s): E78.5 - Hyperlipidemia, unspecified Status: Acute Assessment and Plan: -continue with atorvastatin (9) Hypertension: Code(s): I10 - Essential (primary) hypertension Status: Acute Assessment and Plan: * BP is 132/59 * Continue home amlodipine, bystolic * trend BP * adjust therapy as indicated (10) Acute on chronic renal failure: Code(s): N17.9 - Acute kidney failure, unspecified; N18.9 - Chronic kidney disease, unspecified Status: Acute Assessment and Plan: * BUN/Cr elevated at 34/1.90 * Stage 3 * Renal ultrasound indicates medical renal disease * Baseline appears to be 1.4-1.6 * hold lasix for now * UA does not indicate infection * Urine studies Na 41, Urea 647, Cr 62.3 * FE
--- NOTE | 2022-10-09 07:38 | PM.IMPN ---
Progress Note: A&P Assessment and Plan (1) Acute deep vein thrombosis of right peroneal vein: Code(s): I82.451 - Acute embolism and thrombosis of right peroneal vein Status: Acute Assessment and Plan: presented with complaints of lower extremity edema Venous doppler showed DVT in the right peroneal veins Xarelto at home, change to Eliquis Currently on Arixtra Hematology consulted will need outpatient follow up with hematology (2) Abdominal aortic aneurysm, without rupture: Code(s): I71.4 - Abdominal aortic aneurysm, without rupture Status: Acute Assessment and Plan: appears outpatient workup pending Continue with vascular outpatient (3) Atrial fibrillation: Qualifiers: Atrial fibrillation type: unspecified Qualified Code(s): I48.91 - Unspecified atrial fibrillation Code(s): I48.91 - Unspecified atrial fibrillation Status: Acute Assessment and Plan: Current ECG shows bradycardia rate of 56 Continue home bystolic Hold Xarelto, Change to Eliquis Stop Arixtra (4) CHF (congestive heart failure): Code(s): I50.9 - Heart failure, unspecified Status: Acute Assessment and Plan: Echo EF 56% with grade 3 diastolic dysfunction lasix on hold with JULIENNE continue home bystolic daily weight BNP 192 Trend urine output appears to be chronic diastolic heart failure with out exacerbation (5) Obstructive sleep apnea (adult) (pediatric): Code(s): G47.33 - Obstructive sleep apnea (adult) (pediatric) Status: Acute Assessment and Plan: -continue with home settings for CPAP (6) Type 2 diabetes mellitus with hyperglycemia: Qualifiers: 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: unspecified 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 insulin 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 status Qualified Code(s): E11.65 - Type 2 diabetes mellitus with hyperglycemia Code(s): E11.65 - Type 2 diabetes mellitus with hyperglycemia Status: Acute Assessment and Plan: Current glucose is 155 A1c 7.0 Accu cheks ACHS diabetic diet iss hold metformin for now Trend glucose Adjust therapy as indicated (7) Gout: Code(s): M10.9 - Gout, unspecified Status: Acute Assessment and Plan: -continue with allopurinol (8) Hyperlipidemia: Code(s): E78.5 - Hyperlipidemia, unspecified Status: Acute Assessment and Plan: -continue with atorvastatin (9) Hypertension: Code(s): I10 - Essential (primary) hypertension Status: Acute Assessment and Plan: BP is 132/59 Continue home amlodipine, bystolic trend BP adjust therapy as indicated (10) Acute on chronic renal failure: Code(s): N17.9 - Acute kidney failure, unspecified; N18.9 - Chronic kidney disease, unspecified Status: Acute Assessment and Plan: BUN/Cr elevated at 34/1.90 Stage 3 Renal ultrasound indicates medical renal disease Baseline appears to be 1.4-1.6 hold lasix for now UA does not indicate infection Urine studies Na 41, Urea 647, Cr 62.3 FEUrea shows intrinsic disease Nephrology consulted thank you for your help (11) BMI 40.0-44.9, adult: Code(s): Z68.41 - Body mass index [BMI] 40.0-44.9, adult Status: Acute Assessment and Plan: BMI 42.8 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 He does not quite understand why his left leg is the 1 that he was complaining about however the right leg is the 1 with the DVT. Concern for possible DVT in the left leg since it was swollen for the last 2 weeks
[2022-10-09] MEDS: APIXABAN 5 MG TABLET 10 MG PO (08:28)
[2022-10-09] MEDS: ATORVASTATIN 10 MG TABLET PO (08:29)
[2022-10-09] MEDS: amLODIPine BESYLATE 5 MG TABLET 10 MG PO (08:29)
[2022-10-09] MEDS: allopurinoL 300 MG TABLET PO (08:29)
[2022-10-09 08:30] VITALS: PULSE 60
[2022-10-09] MEDS: NEBIVOLOL HCL 5 MG TABLET 20 MG PO (08:30)
[2022-10-09 08:40] LABS: Glucose Point of Care 168 mg/dl (65-105)
[2022-10-09 12:17] LABS: Glucose Point of Care 190 mg/dl (65-105)
--- NOTE | 2022-10-09 13:16 | PM.DS ---
DS: Admitting Diagnosis Discharge Date 10/09/22 1315 Admitting Diagnosis DVT, acute on chronic kidney failure DS: Discharge Diagnosis Discharge Diagnosis (1) Acute deep vein thrombosis of right peroneal vein: Code(s): I82.451 - Acute embolism and thrombosis of right peroneal vein Status: Acute Assessment and Plan: presented with complaints of lower extremity edema Venous doppler showed DVT in the right peroneal veins Xarelto at home, change to Eliquis Currently on Arixtra Hematology consulted will need outpatient follow up with hematology (2) Abdominal aortic aneurysm, without rupture: Code(s): I71.4 - Abdominal aortic aneurysm, without rupture Status: Acute Assessment and Plan: appears outpatient workup pending Continue with vascular outpatient (3) Atrial fibrillation: Qualifiers: Atrial fibrillation type: unspecified Qualified Code(s): I48.91 - Unspecified atrial fibrillation Code(s): I48.91 - Unspecified atrial fibrillation Status: Acute Assessment and Plan: Current ECG shows bradycardia rate of 56 Continue home bystolic Hold Xarelto, Change to Eliquis Stop Arixtra (4) CHF (congestive heart failure): Code(s): I50.9 - Heart failure, unspecified Status: Acute Assessment and Plan: Echo EF 56% with grade 3 diastolic dysfunction lasix on hold with JULIENNE continue home bystolic daily weight BNP 192 Trend urine output appears to be chronic diastolic heart failure with out exacerbation (5) Obstructive sleep apnea (adult) (pediatric): Code(s): G47.33 - Obstructive sleep apnea (adult) (pediatric) Status: Acute Assessment and Plan: -continue with home settings for CPAP (6) Type 2 diabetes mellitus with hyperglycemia: Qualifiers: Diabetes mellitus correction insulin use: unspecified correction insulin use status Qualified Code(s): E11.65 - Type 2 diabetes mellitus with hyperglycemia Code(s): E11.65 - Type 2 diabetes mellitus with hyperglycemia Status: Acute Assessment and Plan: Current glucose is 155 A1c 7.0 Accu cheks ACHS diabetic diet iss hold metformin for now Trend glucose Adjust therapy as indicated (7) Gout: Code(s): M10.9 - Gout, unspecified Status: Acute Assessment and Plan: -continue with allopurinol (8) Hyperlipidemia: Code(s): E78.5 - Hyperlipidemia, unspecified Status: Acute Assessment and Plan: -continue with atorvastatin (9) Hypertension: Code(s): I10 - Essential (primary) hypertension Status: Acute Assessment and Plan: BP is 132/59 Continue home amlodipine, bystolic trend BP adjust therapy as indicated (10) Acute on chronic renal failure: Code(s): N17.9 - Acute kidney failure, unspecified; N18.9 - Chronic kidney disease, unspecified Status: Acute Assessment and Plan: BUN/Cr elevated at 34/1.90 Stage 3 Renal ultrasound indicates medical renal disease Baseline appears to be 1.4-1.6 hold lasix for now UA does not indicate infection Urine studies Na 41, Urea 647, Cr 62.3 FEUrea shows intrinsic disease Nephrology consulted thank you for your help (11) BMI 40.0-44.9, adult: Code(s): Z68.41 - Body mass index [BMI] 40.0-44.9, adult Status: Acute Assessment and Plan: BMI 42.8 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 Venous Dopplers were performed did show a right DVT. Patient was complaining mainl
--- NOTE | 2022-10-09 13:16 | P.DS_ITS ---
DS: Admitting Diagnosis Discharge Date 10/09/22 1315 Admitting Diagnosis DVT, acute on chronic kidney failure DS: Discharge Diagnosis Discharge Diagnosis (1) Acute deep vein thrombosis of right peroneal vein: Code(s): I82.451 - Acute embolism and thrombosis of right peroneal vein Status: Acute Assessment and Plan: * presented with complaints of lower extremity edema * Venous doppler showed DVT in the right peroneal veins * Xarelto at home, change to Eliquis * Currently on Arixtra * Hematology consulted * will need outpatient follow up with hematology (2) Abdominal aortic aneurysm, without rupture: Code(s): I71.4 - Abdominal aortic aneurysm, without rupture Status: Acute Assessment and Plan: * appears outpatient workup pending * Continue with vascular outpatient (3) Atrial fibrillation: Qualifiers: Atrial fibrillation type: unspecified Qualified Code(s): I48.91 - Unspecified atrial fibrillation Code(s): I48.91 - Unspecified atrial fibrillation Status: Acute Assessment and Plan: * Current ECG shows bradycardia rate of 56 * Continue home bystolic * Hold Xarelto, Change to Eliquis * Stop Arixtra (4) CHF (congestive heart failure): Code(s): I50.9 - Heart failure, unspecified Status: Acute Assessment and Plan: * Echo EF 56% with grade 3 diastolic dysfunction * lasix on hold with JULIENNE * continue home bystolic * daily weight * BNP 192 * Trend urine output * appears to be chronic diastolic heart failure with out exacerbation (5) Obstructive sleep apnea (adult) (pediatric): Code(s): G47.33 - Obstructive sleep apnea (adult) (pediatric) Status: Acute Assessment and Plan: -continue with home settings for CPAP (6) Type 2 diabetes mellitus with hyperglycemia: 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: 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 Qualified Code(s): E11.65 - Type 2 diabetes mellitus with hyperglycemia Code(s): E11.65 - Type 2 diabetes mellitus with hyperglycemia Status: Acute Assessment and Plan: * Current glucose is 155 * A1c 7.0 * Accu cheks ACHS * diabetic diet * iss * hold metformin for now * Trend glucose * Adjust therapy as indicated (7) Gout: Code(s): M10.9 - Gout, unspecified Status: Acute Assessment and Plan: -continue with allopurinol (8) Hyperlipidemia: Code(s): E78.5 - Hyperlipidemia, unspecified Status: Acute Assessment and Plan: -continue with atorvastatin (9) Hypertension: Code(s): I10 - Essential (primary) hypertension Status: Acute Assessment and Plan: * BP is 132/59 * Continue home amlodipine, bystolic * trend BP * adjust therapy as indicated (10) Acute on chronic renal failure: Code(s): N17.9 - Acute kidney failure, unspecified; N18.9 - Chronic kidney disease, unspecified Status: Acute Assessment and Plan: * BUN/Cr elevated at 34/1.90 * Stage 3 * Renal ultrasound indicates medical renal disease * Base
--- NOTE | 2022-10-09 13:19 | P.PNNP_ITS ---
Progress Note: A&P Assessment and Plan (1) JULIENNE (acute kidney injury): Code(s): N17.9 - Acute kidney failure, unspecified Status: Acute Assessment and Plan: * a bit better * running a bit higher in the last few months * was 2.2 - 2.3mg/dl by last 2 labs as an outpatient * givne positive KAIT and paraproteinemia, reordered and pending * follow trend of labs since a bit better than outpatient testing (2) Stage 3a chronic kidney disease: Code(s): N18.31 - Chronic kidney disease, stage 3a Status: Chronic Assessment and Plan: * baseline creatinine per office records runs 1.3 - 1.7mg/dl * due diabetes, hypertension, vascular disease, and age (3) Acute deep vein thrombosis of right peroneal vein: Code(s): I82.451 - Acute embolism and thrombosis of right peroneal vein Status: Acute Assessment and Plan: * presence noted despite being on xarelto * now on arixtra * Hem/Onc recommendations noted (4) CHF (congestive heart failure): Code(s): I50.9 - Heart failure, unspecified Status: Acute Assessment and Plan: * appears compensated * on bystolic and lasix (5) Hypertension: Code(s): I10 - Essential (primary) hypertension Status: Acute Assessment and Plan: * reasonable control at this time * follow trend of hemodynamics (6) Type 2 diabetes mellitus with hyperglycemia: Qualifiers: Diabetes mellitus skilled nursing insulin use: unspecified skilled nursing insulin use status Qualified Code(s): E11.65 - Type 2 diabetes mellitus with hyperglycemia Code(s): E11.65 - Type 2 diabetes mellitus with hyperglycemia Status: Acute Assessment and Plan: * follow accuchecks * glycemic control Will continue to follow. Subjective Date/time seen: 10/09/22 13:19 Appears to be doing reasonably well; no apparent distress noted; seen by Hem/Onc yesterday; no other events/problems overnight or earlier this AM. Exam Narrative: General: WD/WN male in NAD Heart: normal S1 and S2; no rub Lungs: clear to auscultation Abdomen: soft, nontender, nondistended, positive bowel sounds Extremities: no cyanosis or clubbing; 1+ edema in LLE, 2+ in RLE Skin: warm and dry Objective Data Vital Signs Vital Signs: Vital Signs Temp Pulse Resp BP Pulse Ox 10/09/22 08:30 60 10/09/22 04:50 96.9 F L 54 L 20 132/59 L 96 10/08/22 20:30 97 F L 56 L 20 124/58 L 95 10/08/22 13:51 98.1 F 67 16 124/71 98 Intake/Output Intake/Output: Intake & Output 10/06/22 10/07/22 10/08/22 10/09/22 23:59 23:59 23:59 23:59 Intake Total 2500 2210 Balance 2500 2210 Meds/Results Medications: Active Medications Generic Name Dose Route Start Last Admin Trade Name Freq PRN Reason Stop Dose Admin Acetaminophen 650 mg 10/07/22 22:18 Acetaminophen 325 Mg Tablet PO Q4H PRN Pain Rated 1-3 Allopurinol 300 mg 10/08/22 09:00 10/09/22 08:29 Allopurinol 300 Mg Tablet PO 300 mg DAILY SHASHA Administration Amlodipine Besylate 10 mg 10/08/22 09:00 10/09/22 08:29 Amlodipine Besylate 5 Mg Tablet PO 10 mg DAILY SHASHA Administration
--- NOTE | 2022-10-09 13:19 | PM.PNNEP ---
Progress Note: A&P Assessment and Plan (1) JULIENNE (acute kidney injury): Code(s): N17.9 - Acute kidney failure, unspecified Status: Acute Assessment and Plan: a bit better running a bit higher in the last few months was 2.2 - 2.3mg/dl by last 2 labs as an outpatient givne positive KAIT and paraproteinemia, reordered and pending follow trend of labs since a bit better than outpatient testing (2) Stage 3a chronic kidney disease: Code(s): N18.31 - Chronic kidney disease, stage 3a Status: Chronic Assessment and Plan: baseline creatinine per office records runs 1.3 - 1.7mg/dl due diabetes, hypertension, vascular disease, and age (3) Acute deep vein thrombosis of right peroneal vein: Code(s): I82.451 - Acute embolism and thrombosis of right peroneal vein Status: Acute Assessment and Plan: presence noted despite being on xarelto now on arixtra Hem/Onc recommendations noted (4) CHF (congestive heart failure): Code(s): I50.9 - Heart failure, unspecified Status: Acute Assessment and Plan: appears compensated on bystolic and lasix (5) Hypertension: Code(s): I10 - Essential (primary) hypertension Status: Acute Assessment and Plan: reasonable control at this time follow trend of hemodynamics (6) Type 2 diabetes mellitus with hyperglycemia: Qualifiers: Diabetes mellitus prison insulin use: unspecified prison insulin use status Qualified Code(s): E11.65 - Type 2 diabetes mellitus with hyperglycemia Code(s): E11.65 - Type 2 diabetes mellitus with hyperglycemia Status: Acute Assessment and Plan: follow accuchecks glycemic control Will continue to follow. Subjective Date/time seen: 10/09/22 13:19 Appears to be doing reasonably well; no apparent distress noted; seen by Hem/Onc yesterday; no other events/problems overnight or earlier this AM. Exam Narrative: General: WD/WN male in NAD Heart: normal S1 and S2; no rub Lungs: clear to auscultation Abdomen: soft, nontender, nondistended, positive bowel sounds Extremities: no cyanosis or clubbing; 1+ edema in LLE, 2+ in RLE Skin: warm and dry Objective Data Vital Signs Vital Signs: Vital Signs Temp Pulse Resp BP Pulse Ox 10/09/22 08:30 60 10/09/22 04:50 96.9 F L 54 L 20 132/59 L 96 10/08/22 20:30 97 F L 56 L 20 124/58 L 95 10/08/22 13:51 98.1 F 67 16 124/71 98 Intake/Output Intake/Output: Intake & Output 10/06/22 10/07/22 10/08/22 10/09/22 23:59 23:59 23:59 23:59 Intake Total 2500 2210 Balance 2500 2210 Meds/Results Medications: Active Medications Generic Name Dose Route Start Last Admin Trade Name Freq PRN Reason Stop Dose Admin Acetaminophen 650 mg 10/07/22 22:18 Acetaminophen 325 Mg Tablet PO Q4H PRN Pain Rated 1-3 Allopurinol 300 mg 10/08/22 09:00 10/09/22 08:29 Allopurinol 300 Mg Tablet PO 300 mg DAILY SHASHA Administration Amlodipine Besylate 10 mg 10/08/22 09:00 10/09/22 08:29 Amlodipine Besylate 5 Mg Tablet PO 10 mg DAILY SHASHA Administration Apixaban 10 mg 10/09/22 09:00 10/09/22 08:28 Apixaban 5 Mg Tablet PO 10/15/22 21:01 10 mg Q12HR SHASHA Administration Apixaban 5 mg 10/16/22 09:00 Apixaban 5 Mg Tablet PO Q12HR SHASHA Atorvastatin Calcium 10 mg 10/08/22 09:00 10/09/22 08:29 Atorvastatin 10 Mg Tablet PO 10 mg DAILY SHASHA Administration Dextrose 12.5 gm 10/07/22 22:19 Dextrose 50% 25 Gm/50 Ml Syringe IV PUSH PRN PRN Hypoglycemia Protocol Furosemide 40 mg 10/08/22 09:00 Furosemide 40 Mg Tablet PO DAILY SHASHA Furosemide 40 mg 10/09/22 13:15 Furosemide Inj 40 Mg/4 Ml Vial IV PUSH 10/09/22 13:16 ONCE ONE Glucagon 1 mg 10/07/22 22:19 Glucagon For Inj 1 Mg Vial IM PRN PRN Hypoglycemia Protocol Glucose 15 gm 10/07/22
[2022-10-09] MEDS: FUROSEMIDE INJ 40 MG/4 ML VIAL IV PUSH (13:58)
[2022-10-11 14:07] LABS: Osmolality, Urine 503 mOsm/kg (50-1200)
[2022-10-13 10:32] LABS: Albumin 3.5 g/dL (3.8-4.8); Alpha 1 Globulin 0.3 g/dL (0.2-0.3); Alpha 2 Globulin 0.8 g/dL (0.5-0.9); Beta 1 Globulin 0.4 g/dL (0.4-0.6); Protein, Total 6.3 g/dL (6.1-8.1)
[2022-10-13 12:30] LABS: Total Protein/Creatinine Ratio 379 mg/g creat (25-148)
== END 2022-10-09 15:00 | disposition home or self-care (01) | DRG 300 ==
LOC: ANHED 16:23 → ANH2MED 17:59
PROVIDERS: Internal Medicine Nephrology; Nurse Practitioner; Physician Assistant; Admitting Provider Internal Medicine; Emergency Provider Emergency Medicine; PCP Family Medicine; Visit Provider Nurse Practitioner
DX: I82.451 Acute embolism and thrombosis of right peroneal vein (principal); I13.0 Hypertensive heart and chronic kidney disease with heart failure and stage 1 through stage 4 chronic kidney disease, or unspecified chronic kidney disease; I50.32 Chronic diastolic (congestive) heart failure; N17.9 Acute kidney failure, unspecified; Z68.41 Body mass index [BMI] 40.0-44.9, adult; E66.01 Morbid (severe) obesity due to excess calories; E11.42 Type 2 diabetes mellitus with diabetic polyneuropathy; E11.65 Type 2 diabetes mellitus with hyperglycemia; E11.22 Type 2 diabetes mellitus with diabetic chronic kidney disease; E78.5 Hyperlipidemia, unspecified; E53.9 Vitamin B deficiency, unspecified; G47.33 Obstructive sleep apnea (adult) (pediatric); I71.40 Abdominal aortic aneurysm, without rupture, unspecified; I48.91 Unspecified atrial fibrillation; I27.20 Pulmonary hypertension, unspecified; M10.9 Gout, unspecified; N18.31 Chronic kidney disease, stage 3a; Z90.49 Acquired absence of other specified parts of digestive tract; Z66 Do not resuscitate; Z87.891 Personal history of nicotine dependence; Z79.01 Long term (current) use of anticoagulants; Z79.84 Long term (current) use of oral hypoglycemic drugs
CPT/HCPCS: 36415; 70450; 71046; 76775; 80053; 81001; 82570; 82948; 83036; 83605; 83735; 83880; 83935; 84155; 84156; 84165; 84166; 84300; 84443; 84484; 84540; 85025; 85610; 85730; 86038; 86160; 86225; 86334; 93005; 93306; 93970; 96372; 99285; A9270; G0378; J1652; J1940; J7030

== ENCOUNTER 2023-01-06 11:28 | Outpatient (CLI) | payer MEDICARE, MEDICAID, SELFPAY ==
--- NOTE | ~2023-01-06 | US_ITS ---
EXAMINATION:US venous doppler LE RT INDICATION:Acute DVT. TECHNIQUE: Multiple grayscale, color flow and Doppler images of the right lower extremity deep venous systems were obtained and reviewed. COMPARISON:10/07/2022 FINDINGS: The common femoral, superficial femoral and popliteal veins demonstrate normal respiratory variation, augmentation and compressibility. Color flow is also seen within the posterior tibial, pe roneal, greater saphenous and profunda veins. IMPRESSION: 1: No lower extremity deep venous thrombosis. Reviewed, dictated and finalized at location [facility]. [employer]
== END 2023-01-06 11:29 | disposition home or self-care (01) ==
PROVIDERS: PCP Family Medicine; Visit Provider Internal Medicine Hematology & Oncology
DX: I82.451 Acute embolism and thrombosis of right peroneal vein (principal)
CPT/HCPCS: 93971

== ENCOUNTER 2023-01-20 13:17 | Outpatient (CLI) | payer MEDICARE, MEDICAID, SELFPAY ==
[2023-01-22 21:13] LABS: Antithrombin III Activity 120 % normal (80-135)
[2023-01-23 21:47] LABS: Lupus dRVVT Confirmation Negative (Negative); Lupus dRVVT Screen 50 sec (<=45); PTT-LA Screen 39 sec (<=40)
[2023-01-24 11:19] LABS: Homocysteine 15.6 umol/L (<11.4)
[2023-01-27 16:28] LABS: Factor V (Leiden) Mutation NEGATIVE
[2023-01-29 15:21] LABS: Lupus dRVVT Additional Testing Yes
== END 2023-01-20 13:18 | disposition home or self-care (01) ==
LOC: ANHLAB 13:20
PROVIDERS: PCP Family Medicine; Visit Provider Internal Medicine Hematology & Oncology
DX: I82.451 Acute embolism and thrombosis of right peroneal vein (principal)
CPT/HCPCS: 36415; 81240; 81241; 83090; 85300; 85303; 85306; 85597; 85613; 85730; 86146

== ENCOUNTER 2025-08-08 14:01 | Outpatient (CLI) | payer MEDICARE, MEDICAID, SELFPAY ==
--- NOTE | ~2025-08-08 | PE_ITS ---
EXAMINATION: PET_PETPSMAST_PT DATE: 08/09/2025 08:45 INDICATION: Prostate cancer TECHNIQUE: 4.397 mCi of Illucix Ga-[id number]) was administered i.v. Low dose computed tomography (CT) images were acquired from the base of the brain to the base of the brain to the proximal thighs for attenuation correction and anatomic localization. Positron emission tomography (PET) images were acquired in the same distribution beginning 72 minutes after injection. Images including fused PET/CT images were reconstructed in axial, coronal, and sagittal planes. Automated exposure control technique was employed. The dose-length product was 1441.12mGy-cm. COMPARISON: CT studies dated 03/12/2022 and 11/08/2018 FINDINGS: Head/neck: Typical pattern of symmetric physiologic increased activity in the lacrimal, parotid and submandibular glands as well as along the mucosa of the nasal and oral cavities, pharynx and hypopharynx. No pathologically enlarged cervical lymphadenopathy or suspicious foci of increased uptake in the visualized head or neck. Chest: Mild emphysema. 3 mm nodule at the posterior segment right upper lobe without evident PSMA activity. There is a 3.3 x 3.0 cm mass and nearby 1.5 x 1.0 cm satellite nodule in the right lower lobe, the larger with mild activity with maximal SUV of 5.9. There are calcified pulmonary nodules the right lower lobe along with calcified right hilar lymph nodes consistent with old granulomatous disease. Left lung is clear. No pleural effusion. Cardiomegaly. Atherosclerotic coronary artery calcific location. No pericardial effusion. Thoracic aorta is normal in caliber. No pathologically enlarged or PSMA avid thoracic lymphadenopathy. Abdomen/pelvis/proximal thighs: Physiologic renal accumulation and excretion of activity in the kidneys, bladder and along portions of ureters. Photopenic defects associated with bilateral renal cysts the largest on the right measuring 6.0 cm. Prostatomegaly measuring 4.8 x 4.0 cm. There are 2 foci of increased uptake in the prostate the more intense positioned anteriorly along the midline with maximal SUV of 18.1 and a second at the right posterior aspect of the prostate with maximal SUV of 10.8, both consistent with reported primary prostate cancer. Multiple calcified gallstones within the normal nondilated gallbladder. Normal degree and slightly heterogenous pattern of increased uptake throughout the liver and spleen without radiologic correlate or dominant PSMA avid lesion. The pancreas and bilateral adrenal glands are normal. Moderate uptake scattered throughout the bowels with typical duodenal and proximal jejunal predominance and without radiologic correlate, also likely physiologic. Mild scattered colonic diverticulosis without adjacent from trace stranding to suggest diverticular colitis. 1.6 x 0.9 cm right external iliac chain lymph node with mild increased pacemaker activity with maximal SUV of 6.6. Fusiform infrarenal abdominal aortic aneurysm measuring up to 4.3 x 4.1 cm with aortobiiliac endoluminal stent grafting. Musculoskeletal: PSMA avid lytic bone lesion at the right posterior iliac spine with maximal SUV of 11.1. Additional more subtle lytic lesion posterior to the right acetabulum with maximal SUV of 15.8. Smaller PSMA avid bone lesions suspicious for metastatic disease including at the subtrochanteric right femur, right pubic body, left ischial tuberosity, left sacral ala, T6 vertebral body and right lamina of T3. IMPRESSION: 1. Prostatomegaly with 2 foci of increased activity consistent with primary prostate cancer. 2. PSMA avid lesions suspicious for metastatic disease including bone lesions the largest with associated lytic lesions on CT, at a mildly enlarged right external iliac chain lymph node as well as at a 3.3 cm right lower lobe mass. The degree of uptake at the right lower lobe mass is however less than that of several similar-sized or smaller bone lesions and less than that of the smaller right external iliac chain lymph node which raises the possibility that the lung mass represents an independent primary lung cancer. 3. Cholelithiasis. Reviewed, dictated and finalized at location A. IMPRESSION: 1. Prostatomegaly with 2 foci of increased activity consistent with primary pro state cancer. 2. PSMA avid lesions suspicious for metastatic disease including bone lesions t he largest with associated lytic lesions on CT, at a mildly enlarged right exte rnal iliac chain lymph node as well as at a 3.3 cm right lower lobe mass. The d egree of uptake at the right lower lobe mass is however less than that of sever al similar-sized or smaller bone lesions and less than that of the smaller righ t external iliac chain lymph node which raises the possibility that the lung ma ss represents an independent primary lung cancer. 3. Cholelithiasis.
--- OUTSIDE RECORDS SUMMARY | 2025-08-08 14:21 | XMS_ITS | Clinical Summary ---
Author Organization [facility] Magalie Bynum Address [address] [place] [address] Care Team Providers Care C.O.D. Audit Clerk Name Role Phone Fili Brown MD Primary Care Provider [phone] Allergies Active Allergy Reactions Criticality Noted Date Comments Lisinopril Unknown 03/13/2019 Sulfa (Sulfonamide Antibiotics) Swelling Low 02/16 Medications acetaminophen (TYLENOL) 325 mg tablet TAKE 2 TABLETS BY MOUTH EVERY 4 HOURS NEEDED FOR PAIN 2 Active allopurinoL (ZYLOPRIM) 100 mg tablet daily. 1 Active apixaban (Eliquis) 5 mg tablet 2 Active atorvastatin (LIPITOR) 20 mg tablet 10 mg. 1 Active cannabidioL (EPIDIOLEX) 100 mg/mL Solution Take 728 mg by mouth. Active clobetasoL (TEMOVATE) 0.05 % Cream APPLY TO INVOLED AREAS OF BODY TWICE DAILY UNTIL CLEAR. RUB IN WELL 2 Active empagliflozin (JARDIANCE) 10 mg tablet Take 10 mg by mouth daily. 2 Active furosemide (LASIX) 40 mg tablet Take 40 mg by mouth. 2 Active HYDROcodone-dahlia taminophen (XODOL) 10-300 mg Tablet TAKE BY MOUTH EVERY 6 HOURS NEEDED 1 Active ketoconazole (NIZORAL) 2 % Shampoo 2 Active nebivoloL (BYSTOLIC) 20 mg Tablet TAKE BY MOUTH ONCE A DAY 1 Active ondansetron (ZOFRAN ODT) 4 mg Tablet, Rapid Dissolve as needed 1 Active rivaroxaban (XARELTO) 20 mg Tablet 20 mg. 1 Active rosuvastatin (CRESTOR) 20 mg tablet 2 Active testosterone 30 mg/actuation (1.5 mL) Solution in Metered Pump w/Olya TEST AC BID PRN 0 Active triamcinolone acetonide (KENALOG) 0.1 % Cream APPLY TOPICALLY QID 0 Active triamterene-hyd roCHLOROthiazid e (MAXZIDE 25) 37.5-25 mg tablet Take 1 Tablet by mouth daily. 1 Active valsartan (DIOVAN) 40 mg tablet Take 40 mg by mouth daily. Active Active Problems No known active problems Family History Medical History Relation Name Comments HIV Brother 1 Heart Surgery Brother 2 No Known Problems Daughter Diabetes Father Heart Disease Father No Known Problems Mother Cancer Sister 1 Diabetes Sister 1 Ovarian Cancer Sister 1 Lung Cancer Sister 2 No Known Problems Son 1 No Known Problems Son 2 Relation Name Status Comments Brother 1 Brother 2 Alive Daughter Alive Father Mother Sister 1 Sister 2 Son 1 Alive Son 2 Alive Social History Tobacco Use Types Packs/Day Years Used Date Smoking Tobacco: Former Cigarettes 3.5 30 1 958 - 1988 Smokeless Tobacco: Never Tobacco Cessation:Counseling Given: Not Answered Alcohol Use Standard Drinks/Week Comments Not Currently 0 (1 standard drink = 0.6 oz pur e alcohol) Quit in early Sex and Gender Information Value Date Recorded Sex Assigned at Not on file Legal Sex Male 10:34 AM 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 Gender Identity Not on file Sexual Orientation Not on file Last Filed Vital Signs Vital Sign Reading Time Taken Comments Blood Pressure 117/47 07/02/2023 9:27 AM CDT Pulse 68 07/02/2023 9:27 AM CDT Temperature 36.7 C (98 F) 07/02/2023 9:27 AM CDT Respiratory Rate 10 07/02/2023 9:27 AM CDT Oxygen Saturation 98% 07/02/2023 9:27 AM CDT Inhaled Oxygen Concentration - - Weight 141.5 kg (312 lb) 07/02/2023 9:27 AM CDT Height 182.9 cm (6') 01/06/2023 10:19 AM SWAGE TENDER Body Mass Index 42.31 01/06/2023 10:19 AM SWAGE TENDER Plan of Treatment Health Maintenance Due Date Last Done Comments DIABETES ANNUAL FOOT EXAM 1962 DIABETES MICROALBUMIN ANNUAL SCREEN 1962 LDL CHOLESTEROL ANNUAL 1962 DTAP/TDAP/TD VACCINES (1 - Tdap) 1963 ZOSTER VACCINE (1 of 2) 1994 PNEUMOCOCCAL VACCINE 50+ YEA RS (2 of 2 - PPSV23, PCV20, or PCV21) 03/12/2018 01/15/2018 RSV VACCINE (60+ or ) (1 - 1-dose 75+ series) 2019 DIABETES ANNUAL RETINAL EXAM 01/23/2023 01/23/2022 DIABETES HBA1C Q 6 MONTHS 05/13/20242022, 10/07/2023, 04/28/2023, Additional history exists INFLUENZA VACCINE (#1) 2025 , 09/02/2020, 09/03/2018, Additional history exists COVID-19 Vaccine (3 - 2024-2 6 season) 2025 01/14/2021, 12/24/2020 COLORECTAL SCREENING Discontinued 07/21/2019 Colorectal Cancer Screening Discontinued FIT-DNA Q 3 years Discontinued FIT/FOBT Q 1 year Discontinued Flex Sig/CT Colonography Q 5 years Discontinued Insurance [place]ID [place] Member Subscriber Plan / Payer (Ef fective 2022-Present) Name:Boris Hernandez Relation to Subscriber:Self Name:Boris Hernandez Payer ID:Not on file Group ID:Not on file Type:Medicaid Address: [address] [id number] MEDICARE PART A AND B [facility] SUPP Care Teams C.O.D. Audit Clerk Relationship Specialty Start Date End Date Fili Brwon MD PCP - General Family Practice 01/06/23
--- OUTSIDE RECORDS SUMMARY | 2025-08-08 14:21 | XMS_ITS | Clinical Summary ---
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 Active allopurinol (ZYLOPRIM) 100 MG tablet Take 100 mg by mouth 1 (one) time each day. Active ondansetron ODT (ZOFRAN-ODT) 4 MG dispersible tablet Take 4 mg by mouth every 8 (eight) hours if needed. Active Nebivolol HCl 20 MG tablet Take 20 mg by mouth 1 (one) time each day 30 tablet 11 05/18/20 19 Active metFORMIN XR (GLUCOPHATE-XR) 500 MG 24 hr tablet 05/03/20 20 Active Contour Next Test test strip TEST AC BID PRN 08/30/20 20 Active triamcinolone (KENALOG) 0.1 % cream APPLY TOPICALLY QID 08/02/20 20 Active amLODIPine (NORVASC) 10 MG tablet 08/01/20 21 Active Cannabidiol 100 MG/ML solution Take 728 mg by mouth Active Multiple Vitamins-Minera ls (HAIR/SKIN/NAIL S/BIOTIN PO) Take by mouth Act ziggy HYDROcodone-dahlia taminophen (NORCO) 5-325 MG per tablet Take by mouth 04/30/20 21 Active Multiple Vitamin (multivitamin) capsule Take 1 capsule by mouth daily Active Flint-3 1000 MG capsule Take 1,000 mg by mouth daily Active Xarelto 20 MG tablet TAKE 1 TABLET BY MOUTH EVERY EVENING WITH FOOD 08/27/20 Active Turmeric Curcumin 500 MG capsule Take by mouth daily Active triamterene-hyd roCHLOROthiazid e (MAXZIDE-25) 37.5-25 MG per tablet Take 1 tablet by mouth 1 (one) time each day 07/29/20 21 Active Blood Glucose Monitoring Suppl (Contour Next Monitor) w/Device kit See administration instructions 02/16/20 22 Active furosemide (LASIX) 40 MG tablet 01/09/20 22 Active clobetasol (TEMOVATE) 0.05 % cream APPLY TO INVOLED AREAS OF BODY TWICE DAILY UNTIL CLEAR. RUB IN WELL 01/31/20 22 Active ketoconazole (NIZORAL) 2 % shampoo 01/31/20 22 Active Aspirin Low Dose 81 MG EC tablet Take 81 mg by mouth 1 (one) time each day 08/28/20 22 Active Jardiance 10 MG tablet 07/08/20 22 Active rosuvastatin (CRESTOR) 20 MG tablet 08/28/20 22 Active Entresto 24-26 MG per tablet Take 1 tablet by mouth 2 (two) times a day 08/13/20 22 Active Active Problems Problem Noted Date Diagnosed Date Paroxysmal atrial fibrillation 08/28/2022 Abdominal aortic aneurysm without rupture 2021 Congestive heart failure 06/12/2022 Overview (08/28/2022): Added automatically from request for surgery [id number] Obstructive sleep apnea syndrome 08/07/2021 Stage 3a chronic kidney disease 03/13/2019 Essential hypertension 03/13/2019 Other and unspecified hyperlipidemia 03/13/2019 Immunizations Immunization Administration Dates Next Due Influenza Split High Dose Preservative Free IM 1 12/15/2013 Influenza TIV (IM) 08/09/2021,09/02/2020 Influenza Trivalent Adjuvanted 09/03/2018 Pneumococcal Conjugate 13-Valent 01/15/2018 Family History Medical History Relation Comments Hypertension Father Stroke Father Relation Status Comments Father Social History Tobacco Use Types Packs/Day Years Used Date Smoking Tobacco: Former Smokeless Tobacco: Never Alcohol Use Standard Drinks/Week Comments No 0 (1 standard drink = 0.6 oz pur e alcohol) AUDIT-C Answer Date Recorded Frequency of Alcohol Consumption Never 03/13/2019 Average Number of Drinks Not on file 019 Frequency of Binge Drinking Not on file 02/16 Sex and Gender Information Value Date Recorded Sex Assigned at Not on file Legal Sex Male 10:03 AM MDT Gender Identity Not on file Sexual Orientation Not on file Last Filed Vital Signs Vital Sign Reading Time Taken Comments Blood Pressure 120/60 09/04/2022 10:41 AM CDT Pulse 84 09/04/2022 10:41 AM CDT Temperature 35.2 C (95.3 F) 09/04/2022 10:41 AM CDT Respiratory Rate - - Oxygen Saturation - - Inhaled Oxygen Concentration - - Weight 141 kg (311 lb) 09/04/2022 10:41 AM CDT Height 182.9 cm (6') 09/04/2022 10:41 AM CDT Body Mass Index 42.18 09/04/2022 10:41 AM CDT Plan of Treatment Health Maintenance Due Date Last Done Comments Pneumococcal PPSV23/PCV13 65 + Years / Low and Medium Risk (2 of 3 - PCV20 or PCV21) 01/15/2019 01/15/2018 COVID-19 Vaccine (3 - 2024- season) 2025, 12/24/2020 Influenza Vaccine (#1) 2025 , 09/02/2020, 09/03/2018 Insurance MEDICARE [facility] MEDICAID - [place] Care Teams Sheet Metal Contractor Relationship Specialty Start Date End Date Fili Brown MD [address] [place] [id number] PCP - General Internal Medicine 02/25/19
--- OUTSIDE RECORDS SUMMARY | 2025-08-08 14:22 | XMS_ITS | Clinical Summary ---
Author Organization [facility] [address] Address [address] [place] [address] Care Team Providers Care Trailer Body Assembler Name Role Phone Fili Brown MD Primary Care Provider [phone] Allergies Active Allergy Reactions Criticality Noted Date Comments Atorvastatin Hives,Dizziness Medium 06/23/2023 Sulfa (Sulfonamide Antibiotics) Swelling,Swollen tongue High 03/13/2019 Medications HYDROcodone-acetamin ophen (NORCO) 5-325 mg per tablet Take 1 tablet by mouth as needed 04/30/20 21 Active nebivoloL (BYSTOLIC) 20 mg tablet Take 1 tablet (20 mg total) by mouth daily 05/18/20 19 Active furosemide (LASIX) 40 mg tablet Take 1 tablet (40 mg total) by mouth daily as needed (for leg swelling) 30 tablet 11 01/09/20 22 Active acetaminophen (TYLENOL) 325 mg tablet Take 1 tablet (325 mg total) by mouth as needed Takes 2 tablets in the evening 04/04/20 22 Active ketoconazole (NIZORAL) 2 % shampoo as needed 01/31/20 22 Active sacubitriL-valsartan (ENTRESTO) 24-26 mg tablet Take 1 tablet by mouth 2 (two) times a day 180 tablet 3 08/15/20 22 Active Eliquis 5 mg tabletIndications:Ve nous Thrombosis Take 1 tablet (5 mg total) by mouth 2 (two) times a day 10/08/20 22 Active Farxiga 5 mg tablet Take 2 tablets (10 mg total) by mouth daily 04/18/20 23 Active triamcinolone (KENALOG) 0.1 % cream Apply 1 g topically as needed 05/08/20 23 Active cyanocobalamin (Vitamin B-12) 500 mcg tabletIndications:Pr evention of Vitamin B12 Deficiency Take 1 tablet (500 mcg total) by mouth daily Active folic acid (FOLVITE) 800 mcg tablet Take 0.5 tablets (400 mcg total) by mouth daily Active cholecalciferol (VITAMIN D-3) 5,000 unit tablet Take 1 tablet (5,000 Units total) by mouth daily Active miconazole 2 % powder Apply topically 2 (two) times a day 70 g 1 10/17/20 23 Active aspirin 81 mg enteric coated tablet Take 1 tablet (81 mg total) by mouth daily Active Farxiga 10 mg tablet Take 1 tablet (10 mg total) by mouth every morning 02/23/20 24 Active rosuvastatin (CRESTOR) 40 mg tablet Take 1 tablet (40 mg total) by mouth nightly 90 tablet 3 09/22/20 24 Active fenofibrate nanocrystallized (TRICOR) 145 mg tabletIndications:Hi gh triglycerides Take 1 tablet by mouth once daily 90 tablet 11/18/19 25 Active Additional Information Patient not taking.Reported on 03/31/2025 amLODIPine (NORVASC) 10 mg tablet Take 1 tablet by mouth once daily 90 tablet 02/22/20 25 Active magnesium glycinate 100 mg tablet Take by mouth Patient is taking 400 mg twice a day Active Active Problems Problem Noted Date Diagnosed Date Dyspnea and respiratory abnormalities 10/02/2023 Gout 09/23/2023 09/23/2023 Type 2 diabetes mellitus wit h diabetic neuropathy, unspecified 09/23/2023 09/23/2023 Right lower lobe lung mass 09/23/2023 Coronary artery disease invo lving iliamna coronary artery of iliamna heart without angina pectoris 04/11/2023 CAD in iliamna artery 04/10/2023 S/P right coronary artery (RCA) stent placement 04/10/2023 Chronic diastolic congestive heart failure 08/28 Preoperative clearance 08/28/2022 Paroxysmal atrial fibrillation 08/28/2022 AAA (abdominal aortic aneurysm) without rupture 07/09/2022 Assessment & Plan (10/20/2024 9:32 AM EMERGENCY DEPARTMENT AIDE): Stent graft patent in good position with no endoleak. Follow up 1 year with duplex surveillance. Assessment & Plan (11/04/2023 12:47 PM EMERGENCY DEPARTMENT AIDE): Impression: Patient is status post endovascular repair of a 5 cm infrarenal abdominal aortic aneurysm. He denies any abdominal, back, flank pain or symptoms of claudication, ischemic rest pain or ulcerations to his lower extremity. Patient does complain of shortness of breath since Friday10/31/23. He has a CT chest scheduled for 11/06/23 as recommended by pulmonology. Plan: Recommend patient to undergo CT chest. -patient to follow-up in 6-[address] of abdomen pelvis for further evaluation of endovascular repair. For any concerns, recommend patient to call the office for sooner appointment. Diabetes mellitus 07/09/2022 Assessment & Plan (10/20/2024 9:34 AM EMERGENCY DEPARTMENT AIDE): Diabetes chronic controlled. Continue current medical management. Congestive heart failure 06/12/2022 Overview (06/12/2022): Added automatically from request for surgery [id number] Abnormal stress test 06/12/2022 Overview (06/12/2022): Added automatically from request for surgery [id number] Obstructive sleep apnea on CPAP 08/07/2021 Essential (primary) hypertension 03/13/2019 Assessment & Plan (10/20/2024 9:34 AM EMERGENCY DEPARTMENT AIDE): Hypertension chronic controlled. Continue current medical management. Mixed hyperlipidemia 03/13/2019 Stage 3a chronic kidney disease 03/13/2019 Stage 3b chronic kidney disease Class 3 severe obesity due t o excess calories with serious comorbidity and body mass index (BMI) of 40.0 to 44.9 in adult Anemia in stage 3b chronic kidney disease Secondary hyperparathyroidism of renal origin Immunizations Immunization Administration Dates Next Due Influenza, Trivalent, Adjuvanted, Intramuscular 09/03/2018 Influenza, Trivalent, High D ose, Split, Preservative Free, Intramuscular 10/15/2014 Influenza, Trivalent, IM (MDV) 08/09/2021,2019 Pfizer SARS-CoV-2 Monovalent Vaccination (12+ Yrs) PURPLE 01/14/2021,12/24/2020 Pneumococcal Conjugate PCV 13 01/15/2018 Surgical History Surgery Date Site/Laterality Comments KNEE SURGERY 11/17/1959 - 11/16/1960 Left APPENDECTOMY 11/17/2012 - 11/16/2013 N/A CAROTID STENT 03/17/2023 - 04/16/2023 COLONOSCOPY 11/17/2018 - 11/16/2019 N/A RECTAL SURGERY 11/17/1979 - 11/16/1980 cyst removed ENDOSCOPIC AORTIC REPAIR 10/15/2023 N/A PEVAR; Dr. Sen Medical History Medical History Date Comments Atrial fibrillation (HCC) Hypertension Diabetes mellitus (HCC) Sleep apnea Chronic kidney disease Stage III ESRD Type 2 diabetes mellitus Obesity Family History Medical History Relation Name Comments Diabetes Father Hypertension Father Stroke Father Hypertension Mother Lung cancer Sister Relation Name Status Comments Father (Age 67) Mother (Age 87) Sister Social History Tobacco Use Types Packs/Day Years Used Date Smoking Tobacco: Former Cigarettes 2.5 30 1 962 - 1992 Smokeless Tobacco: Never Tobacco Cessation:Counseling Given: Not Answered [facility] Utilities Answer Date Recorded In the past 12 months has [employer], gas, oil, or water [employer] threatened to shut off services in your home? No 10/15/2023 Social Connection and Isolation Panel Answer Date Recorded In a typical week, how many times do you talk on the phone with family, friends, or neighbors? More than three times a week 10/15/2023 How often do you get togethe r with friends or relatives? More than three times a week 10/15/2023 How often do you attend [facility] or scientology services? Never 10/15/2023 Do you belong to any clubs o r organizations such as shinto groups, unions, fraternal or athletic groups, or school groups? No 10/15/2023 How often do you attend meet ings of the clubs or organizations you belong to? Never 10/15/2023 Are you , , di vorced, , never , or living with a partner? 10/15/2023 AUDIT-C Answer Date Recorded Q1: How often do you have a drink containing alc ohol? Never 10/15/2023 Average Number of Drinks Not on file 023 Frequency of Binge Drinking Not on file 09/18 Overall Financial Resource Strain (CARDIA) Answe r Date Recorded How hard is it for you to pa y for the very basics like food, housing, medical care, and heating? Not hard at all 10/15/2023 PHQ-2 Answer Date Recorded PHQ-2 Total Score (If total score is 3 or more points, staff should administer the PHQ-9) 0 06/23/2023 Hunger Vital Sign Answer Date Recorded Within the past 12 months, y ou worried that your food would run out before you got the money to buy more. Never true 10/15/20 23 Within the past 12 months, t he food you bought just didn't last and you didn't have money to get more. Never true 10/15/2023 PRAPARE - Transportation Answer Date Re corded In the past 12 months, has l ack of transportation kept you from medical appointments or from getting medications? No 09/18 In the past 12 months, has l ack of transportation kept you from meetings, work, or from getting things needed for daily living? No 10/15/2023 Housing Stability Vital Sign Answer Attila e Recorded In the last 12 months, was t here a time when you were not able to pay the mortgage or rent on time? No 10/15/2023 In the last 12 months, how many places have you lived? 1 10/15/2023 In the last 12 months, was t here a time when you did not have a steady place to sleep or slept in a senior living (including now)? No 10/15/2023 Personal Safety Answer Date Recorded Have you ever been in or are you currently in a harmful physical or emotional relationship or is someone making you feel afraid or unsafe? Denies 10/15/2023 Sex and Gender Information Value Date Recorded Sex Assigned at Not on file Legal Sex Male 12:49 AM EMERGENCY DEPARTMENT AIDE Gender Identity Not on file Sexual Orientation Not on file Obstetrics History Last Filed Vital Signs Vital Sign Reading Time Taken Comments Blood Pressure 110/70 03/31/2025 10:18 AM CDT Pulse 56 03/31/2025 10:18 AM CDT Temperature 36.4 C (97.6 F) 03/25/2024 10:21 AM CDT Respiratory Rate 20 03/25/2024 10:21 AM CDT Oxygen Saturation 96% 03/31/2025 10:18 AM CDT Inhaled Oxygen Concentration - - Weight 146 kg (321 lb 14.4 oz) 03/31/2025 10:18 AM CDT Height 182.9 cm (6' 0.01) 03/31/2025 10:18 AM C DT Body Mass Index 43.65 03/31/2025 10:18 AM CDT Plan of Treatment Health Maintenance Due Date Last Done Comments Dilated Eye Exam 1945 Foot Exam 1945 DTaP/Tdap/Td Vaccine (1 - Tdap) 1955 Hepatitis B Screening 1962 Zoster Vaccine (1 of 2) 1994 Well Visit 65+ 2009 Pneumococcal vaccine 65+ (2 of 2 - PPSV23, PCV20, or PCV21) 03/12/2018 01/15/2018 Albumin Creatinine Ratio, Urine 02/29/2024 Hemoglobin A1C 04/06/2024 10/07/2023, 02/28/2023 Depression Screening 06/23/2024 06/23/2023, 06/23/20 23 Fall Risk Assessment 10/17/2024 10/17/2023 Covid-19 Vaccine (3 - 2024-2 6 season) 2025 01/14/2021, 12/24/2020 Influenza Vaccine (#1) 2025 , 09/02/2020, 09/03/2018, Additional history exists Lipid Panel 12/22/2025 12/22/2024, 08/19, 06/10/2024, Additional history exists eGFR 12/22/2025 12/22/2024, 02/15, 10/17/2023, Additional history exists Medical Devices Implanted Type Area Traffic Recorder Device Identifier Shelf Expiration Date Model / Serial / Lot [employer] Excluder 14.5mm 32mm 14cm 6.5cm Conformable Active Control Trunk [id number] - [id number] - [id number] Implanted:Qty: 1 on 10/15/2023 by Rufino Sen MD at [facility] Graft N/A: Aorta [employer] [id number] 07/21/2026 [id number] / [id number] / [employer] Excluder 18mm 14.5-16.5mm 11.5cm Stent Abrasion Resistant [id number] - [id number] - [id number] Implanted:Qty: 1 on 10/15/2023 by Norberto Das MD at [facility] Graft Left: Iliac [employer] [id number] 05/07/2026 [id number] / [id number] / [employer] Excluder 18mm 14.5-16.5mm 9.5cm Stent Abrasion Resistant [id number] - [id number] - [id number] Implanted:Qty: 1 on 10/15/2023 by Rufino Sen MD at [facility] Graft Right: Iliac [employer] [id number] 01/29/2026 [id number] / [id number] / [place] [employer] Synergy Xd 3mm 48mm System Coronary Stent Everolimus [id number] - [id number] Implanted:Qty: 1 on 04/10/2023 by Hever Verde MD at [facility] [employer] 11/25/2024 [id number] / / [id number] [employer] Device Vascular Closure Femoral Artery Bioabsorbable Dual Method Vascade 6-7fr Collagen [id number] - [id number] Implanted:Qty: 1 on 04/10/2023 by Hever Verde MD at [facility] [employer] [id number] / / Procedures Procedure Name Priority Date/Time Associated Diagnosis Comments COMPREHENSIVE METABOLIC PANEL Routine 12/22/2024 9:52 AM EMERGENCY DEPARTMENT AIDE Coronary artery disease involving iliamna coronary artery of iliamna heart without angina pectoris Paroxysmal atrial fibrillation (HCC) Mixed hyperlipidemia Essential hypertension S/P right coronary artery (RCA) stent placement Chronic diastolic congestive heart failure (HCC) LIPID PANEL Routine 12/22/2024 9:52 AM EMERGENCY DEPARTMENT AIDE Coronary artery disease involving iliamna coronary artery of iliamna heart without angina pectoris Paroxysmal atrial fibrillation (HCC) Mixed hyperlipidemia Essential hypertension S/P right coronary artery (RCA) stent placement Chronic diastolic congestive heart failure (HCC) HEMOGLOBIN A1C Routine 10/07/2023 1:33 PM EMERGENCY DEPARTMENT AIDE Type 2 diabetes mellitus with diabetic neuropathy, unspecified whether supervisor intermediates insulin use (HCC) ALBUMIN CREATININE RATIO, URINE Routine 02/28/2023 1:34 PM CDT from Last 3 Months or Most Recently Relevant to Health Maintenance Results * (ABNORMAL) Lipid panel (12/22/2024 9:52 AM EMERGENCY DEPARTMENT AIDE) Pathologist [facility] Cholesterol 124 <200 mg/dL [facility] HDL 40 > OR = 40 mg/dL [facility] Triglycerides 229(H) <150 mg/dL [facility] Comment: If a non-fasting specimen was collected, consider repeat triglyceride testing on a fasting specimen if clinically indicated. Doreen et al. J. of Clin. Lipidol. 2015;9:129-169. LDL 55 mg/dL (calc) [facility] Comment: Reference range: <100 Desirable range <100 mg/dL for primary prevention; <70 mg/dL for patients with CHD or diabetic patients with > or = 2 CHD risk factors. LDL-C is now calculated using the Giancarlo-Rosenberg calculation, which is a validated novel method providing better accuracy than the Friedewald equation in the estimation of LDL-C. Giancarlo ZACARIAS et al. YURIY. 2013;310(19): 5199-2577 (http://education.mSpoke/faq/LLU359) Chol/HDL ratio 3.1 <5.0 (calc) [facility] Non-HDL, (LDL+VLDL) 84 <130 mg/dL (calc) [facility] Comment: For patients with diabetes plus 1 major ASCVD risk factor, treating to a non-HDL-C goal of <100 mg/dL (LDL-C of <70 mg/dL) is considered a therapeutic option. Blood 12/22/2024 9:52 AM EMERGENCY DEPARTMENT AIDE 12/22/2024 9:52 AM EMERGENCY DEPARTMENT AIDE Narrative [facility] - 12/22/2024 5:09 PM EMERGENCY DEPARTMENT AIDE FASTING:YES FASTING: YES us Hever Verde MD LAB BLOOD ORDERABLES Final Result [facility] [address] [place] [address] * (ABNORMAL) Comprehensive metabolic panel (12/22/2024 9:52 AM EMERGENCY DEPARTMENT AIDE) Glucose 158(H) 65 - 99 mg/dL [facility] prajapati Andrew Comment: Fasting reference interval For someone without known diabetes, a glucose value >125 mg/dL indicates that they may have diabetes and this should be confirmed with a follow-up test. BUN 44(H) 7 - 25 mg/dL Drew [employer] [facility] Andrew Creatinine 2.12(H) 0.70 - 1.22 mg/dL Drew [employer] eGFR 31(L) > OR = 60 mL/min/1.7 3m2 Drew [employer] pra[facility]apati Andrew BUN/creat ratio 21 6 - 22 (calc) Drew [employer] prajapati Andrew Sodium 140 135 - 146 mmol/L Drew [employer] prajapati Andrew Potassium, pl 4.3 3.5 - 5.3 mmol/L Drew [employer] [facility] Chloride 103 98 - 110 mmol/L [facility] prajapati Andrew CO2 28 20 - 32 mmol/L [facility] Calcium 8.9 8.6 - 10.3 mg/dL Drew [employer] Protein, sr 7.0 6.1 - 8.1 g/dL Drew [employer] prajapati Andrew Albumin 3.9 3.6 - 5.1 g/dL [facility]apati Andrew GLOBULIN 3.1 1.9 - 3.7 g/dL (calc) [facility] prajapati Andrew Alb/glob ratio 1.3 1.0 - 2.5 (calc) [facility] Bilirubin, total 0.7 0.2 - 1.2 mg/dL [facility] prajapati Andrew Alk phos 58 35 - 144 U/L [facility]japati Andrew AST 11 10 - 35 U/L [facility] Andrew ALT (SGPT) 13 9 - 46 U/L [facility] pra[facility]apati Andrew Blood 12/22/2024 9:52 AM EMERGENCY DEPARTMENT AIDE 12/22/2024 9:52 AM EMERGENCY DEPARTMENT AIDE Narrative [facility] - 12/22/2024 5:09 PM EMERGENCY DEPARTMENT AIDE FASTING:YES FASTING: YES us Hever Verde MD LAB BLOOD ORDERABLES Final Result Performing Organization Address City/[facility]/ZIP Co de Phone Number [facility] [address] [place] [address] * (ABNORMAL) Hemoglobin A1c (10/07/2023 1:33 PM EMERGENCY DEPARTMENT AIDE) Hgb A1C 7.1(H) 4.0 - 5.6 % [facility] Estimated Average Glucose 157 mg/dL [facility] Comment: The ADA recommends reporting an estimated Average Glucose (eAG) with all Hemoglobin A1c results using the equation derived from a study of 507 normal and diabetic adults. Minority populations were underrepresented and children were not included. (Diabetes Care 31:9711-5153, 2008). The eAG is not equivalent to a fasting glucose. Blood 10/07/2023 1:33 PM EMERGENCY DEPARTMENT AIDE 10/07/2023 1:38 PM EMERGENCY DEPARTMENT AIDE Rufino Sen MD LAB BLOOD ORDERABLES Final Result Performing Organization Address City/[facility] Co de Phone Number [facility] [address] [facility] Department [place] [address] * (ABNORMAL) Albumin Creatinine Ratio, Urine (02/28/2023 1:34 PM CDT) Creatinine, ur 60 20 - 320 mg/dL [facility] Microalbumin, ur 2.5 See Note: mg/dL [facility] Comment: Reference Range: Reference Range Not established Microalbumin/creat ratio 42(H) <30 mcg/mg creat [facility] Comment: The ADA defines abnormalities in albumin excretion as follows: Albuminuria Category Result (mcg/mg creatinine) Normal to Mildly increased <30 Moderately increased 30-299 Severely increased > OR = 300 The ADA recommends that at least two of three specimens collected within a 3-6 month period be abnormal before considering a patient to be within a diagnostic category. 02/28/2023 1:34 PM CDT 02/28/2023 1:35 PM CDT Narrative [facility] - 03/02/2023 12:35 PM CDT FASTING:NO FASTING: NO us Fili Brown MD LAB URINE ORDERABLES Aby harpal Result [facility] [address] [place] [address] from Last 3 Months or Most Recently Relevant to Health Maintenance Insurance [facility] * Guarantor: Boris Hernandez Account Type Relation to Patient Date of Phone Billing Address Personal/Family Self 1945 [address] [place] [address] [facility] MED[employer] IDPA Advance Directives For more information, please contact: [phone] * Full Code (Latest Code Status on File) Date Activated Date Inactivated Comments 10/15/2023 10:25 AM 10/17/2023 10:50 PM * Full Code Date Activated Date Inactivated Comments 10/15/2023 10:23 AM 10/15/2023 10:25 AM * Full Code Date Activated Date Inactivated Comments 04/10/2023 5:27 PM 04/11/2023 5:21 PM * Full Code Date Activated Date Inactivated Comments 04/10/2023 2:00 PM 04/10/2023 5:27 PM Care Teams Trailer Body Assembler Relationship Specialty Start Date End Date Fili Brown MD PCP - General Family Medicine 05/02/21
== END 2025-08-08 14:02 | disposition home or self-care (01) ==
PROVIDERS: PCP Family Medicine; Visit Provider Urology
DX: C61 Malignant neoplasm of prostate (principal); K80.20 Calculus of gallbladder without cholecystitis without obstruction; N40.0 Benign prostatic hyperplasia without lower urinary tract symptoms
CPT/HCPCS: 78815; A9596

== ENCOUNTER 2025-08-24 08:22 | Emergency (ER) | payer MEDICARE, MEDICAID, SELFPAY ==
--- NOTE | ~2025-08-24 | XR_ITS ---
EXAMINATION: XR chest 2V 08/24/2025 09:04 INDICATION: Chest pain. TECHNIQUE:Frontal and lateral images of the chest were obtained. COMPARISON: 10/07/2022 FINDINGS: Cardiomediastinal silhouette is enlarged, unchanged. No pneumothorax. No pleural effusion. No free air under the diaphragm. Mild pleural thickening along the right lower hemithorax, unchanged. There is a 1.3 cm nodular density projecting over the right lower hemithorax. Small opacities in the lower lungs. IMPRESSION: 1: Small opacities in the mid and lower lungs which represents atelectasis/scarring or infiltrates. 2. There is a 1.3 cm nodular density projecting over the right lower hemithorax. Differential includes nipple shadow or pulmonary nodule. A chest CT is recommended. Reviewed, dictated and finalized at location Q. IMPRESSION: 1: Small opacities in the mid and lower lungs which represents atelectasis/sca rring or infiltrates. 2. There is a 1.3 cm nodular density projecting over the right lower hemithorax . Differential includes nipple shadow or pulmonary nodule. A chest CT is recomm ended.
--- NOTE | ~2025-08-24 | CT_ITS ---
EXAMINATION: CT chest abdomen pelvis wo con DATE: 08/24/2025 09:39 INDICATION: Left flank pain. Left lower rib pain. Hematuria. TECHNIQUE: Computed tomography (CT) of the chest, abdomen, and pelvis was performed without intravenous contrast. Automated exposure control and iterative reconstruction technique were employed. The dose-length product was 1994.59 mGy-cm. COMPARISON: Chest CT 03/12/2022, CT abdomen and pelvis 11/08/18 FINDINGS: CHEST CT: There is mild emphysema. There is mild atelectasis bilaterally. Calcified right lung nodules and calcified right hilar and mediastinal lymph nodes are consistent with old granulomatous disease. There is a 3.6 x 3.5 cm mass in right lung lower lobe. There is a 1.2 cm nodule in right lower lobe. No pleural effusion. The heart size is normal. There are coronary artery calcifications. No pericardial effusion. There is bilateral gynecomastia. There is severe thoracic spondylosis. There is a fracture of left seventh rib. ABDOMEN/PELVIS CT: The liver is normal. There are gallstones in the gallbladder, which is normal in size. The spleen, pancreas, and adrenal glands are normal. There are cysts in the kidneys measuring up to 6.3 cm on the right. There is cortical thinning in the kidneys. There is no urolithiasis. There is a 4.5 cm fusiform infrarenal aortic aneurysm with stent graft in expected position. The prostate is mildly enlarged. There is diverticulosis of the colon without evidence of diverticulitis. There are no dilated loops of bowel. The appendix is not visualized. There are no pathologically enlarged lymph nodes. There is no free intraperitoneal fluid. There is a [place] ventral hernia containing nonobstructed bowel. There are lytic lesions in right ilium and right parasymphyseal pubis. There is severe lumbar spondylosis. IMPRESSION: 1. Mass and nodule in right lung lower lobe and lytic lesions of bone, consistent with primary bronchogenic carcinoma and metastatic disease. 2. Acute fracture of left seventh rib. Reviewed, dictated and finalized at location E. IMPRESSION: 1. Mass and nodule in right lung lower lobe and lytic lesions of bone, consiste nt with primary bronchogenic carcinoma and metastatic disease. 2. Acute fracture of left seventh rib.
[2025-08-24 08:24] VITALS: PULSE 56; RESP 16; TEMP 36.5
--- NOTE | 2025-08-24 08:31 | ECG_ITS ---
Test Date: 2025-08-24 08:29:58 Measurements Intervals [place] Rate: 55 P: 56 ID: [id number] QRS: -1 QRSD: 101 T: 50 QT: 467 QTc: 447 Interpretive Statements SINUS BRADYCARDIA WITH FIRST DEGREE AV BLOCK LOW QRS VOLTAGE IN PRECORDIAL LEADS BASELINE ARTIFACT- I, II, III, AVR, AVL, AVF, V1-V6 BORDERLINE ECG No previous ECG available for comparison Electronically Signed On 08-24-2025 08:37:04 CDT by Mike Izquierdo D.O.
[2025-08-24] MEDS: ASPIRIN 81 MG CHEWABLE TABLET 324 MG PO (08:45)
[2025-08-24 08:54] LABS: Hematocrit 42.6 % (42.0-52.0); Hemoglobin 13.9 g/dL (14.0-18.0); Immature Granulocyte Percent A 0.5 % (0-0.5); Lymphocytes Absolute Auto 1.14 K/mm3 (0.9-3.2); Mean Corpuscular HGB Conc 32.6 g/dl (32-36); Mean Corpuscular Hemoglobin 28.5 pg (26-34); Mean Corpuscular Volume 87.5 fl (80-100); Nucleated Red Blood Cells Absolute Auto 0.000 K/mm3 (0.0-0.012); Nucleated Red Blood Cells Perc 0.0 % (0.0-0.2); Platelet Count Result 166 k/mm3 (150-375); Red Blood Count 4.87 M/mm3 (4.6-6.20); White Blood Count 7.6 K/mm3 (4.5-10.0)
[2025-08-24 09:06] LABS: Alanine Aminotransferase 14 U/L (6-50); Albumin Level 3.9 g/dL (3.5-5.1); Alkaline Phosphatase 103 U/L (38-126); Anion Gap 9 mmol/L (4-12); Aspartate Amino Transferase 18 U/L (17-59); Bilirubin,Total 1.0 mg/dL (0.2-1.3); Blood Urea Nitrogen 50 mg/dL (9-20); Calcium 8.9 mg/dL (8.4-10.2); Carbon Dioxide 28 mmol/L (22-30); Chloride 102 mmol/L (98-107); Estimated CRCL calculation 39 ml/min; Estimated Glomerular Filt Rate 33; Glucose 159 mg/dL (65-110); INR 1.4; Lipase 491 U/L (23-300); Potassium 4.5 mmol/L (3.4-5.0); Prothrombin Time 17.4 Seconds (11.1-14.7); Sodium 139 mmol/L (137-145); Total Protein 7.5 g/dL (6.3-8.2)
[2025-08-24 09:07] LABS: Partial Thromboplastin Time 35.0 Seconds (22.3-36.8)
[2025-08-24 09:16] LABS: Troponin I < 0.012 ng/mL (0.000-0.034)
--- NOTE | 2025-08-24 09:24 | ED.GENADULT ---
HPI - General Adult General Chief complaint: Back Pain/Injury Stated complaint: left flank pain Time Seen by Provider: 08/24/25 08:33 History of Present Illness HPI narrative: 80-year-old male presents emergency department for evaluation for left flank pain. Patient does have history prostate cancer and is going to be on hormone therapy. Patient began having left flank pain approximately 2 days ago. Patient denies any falls or injuries. Patient denies any chest pain or shortness of breath. Patient denies any associated nausea vomiting or diarrhea. Patient denies any hematuria or urinary retention. Related Data Home Medications ?Medication ?Instructions ?Recorded ?Confirmed ?Last Taken ?Type mecobalamin (vitamin B12) 500 mcg 500 mcg PO DAILY 03/04/23 08/01/25 Unknown History chewable tablet rosuvastatin 40 mg tablet 40 mg PO DAILY 01/24/25 08/01/25 Unknown History magnesium glycinate 100 mg (as 400 mg PO DAILY 05/11/25 08/01/25 Unknown History glycinate) tablet tamsulosin 0.4 mg capsule mg PO 08/01/25 08/01/25 Unknown History Allergies Allergy/AdvReac Type Severity Reaction Status Date / Time lisinopril Allergy Unknown vascular Verified 08/01/25 08:17 rash Sulfa (Sulfonamide Allergy Unknown tongue Verified 08/01/25 08:17 Antibiotics) swelling cephalexin AdvReac Unknown Nausea Verified 08/24/25 08:32 Review of Systems Review of Systems: All systems reviewed & are unremarkable except as noted in HPI and below PMFSH Past Medical History Medical History DVT (deep venous thrombosis) Hypertension Hyperlipidemia DVT (deep venous thrombosis) right leg Lichen planus AAA (abdominal aortic aneurysm) CHF (congestive heart failure) Urticaria History of varicella Symptomatic cholelithiasis Pulmonary HTN Cholelithiases Atrial fibrillation Morbid obesity Gout Abdominal aortic aneurysm, without rupture Essential (primary) hypertension Obstructive sleep apnea (adult) (pediatric) Peripheral polyneuropathy Vitamin B deficiency, unspecified Surgical History Surgical History History of cataract extraction with lens replacement History of endovascular stent graft for abdominal aortic aneurysm (AAA) History of PTCA H/O colonoscopy with polypectomy Status post cystoscopy S/P knee surgery History of appendectomy Family History Family History Father , age 64, stroke Diabetes mellitus Hypertension Family history of elevated blood lipids Cerebrovascular accident Sibling AIDS Sibling Ovarian carcinoma Sibling Lung cancer Other Family history of malignant neoplasm Social History Social History Social History: Mr. Hernandez lives at home alone. He reports he is independent with his daily activities. 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 His primary care provider is Dr. Fili Brown. He designates his son, Fili, as his surrogate decision maker and he is a DNR. Smoking packs per day: 2 Smoking cigarettes per day: 40.0 Years smoked: 40 Smoking pack-years: 80.00 Smoking status: Former smoker Alcohol intake: never Substance use: never Do You Feel Safe in your Home?: Yes Lack of Transportation: No Lack of Food: Never True Current Housing: Decline to Answer Concerned About Future Housing: No Difficulty Paying Gas/Electric Bills: No Difficulty Paying for Meds: No Currently Unemployed: No Education: High School Diploma/GED Difficulty w/ Childcare or Family Care: No Gender identity (if verbalized by the patient): Male Spiritual care concerns: No Exam Narrative: APPEARANCE: Well appearing, no pain, no distress, well-nourished. HEAD: normocephalic, atraumatic. EYES: PERRLA/EOMI, conjunctivae clear. NOSE: Normal no drainage EARS:TMS clear with good light reflex. THROAT: Pharynx clear, no exudate. NECK: Supple. No adenopathy, no masses. RESPIRATORY: Airway patent, respirations nonlabored. Clear to auscultation bilaterally, no rales, rhonchi, wheezing. CARDIOVASCULAR: Regular rate and rhythm without murmurs rubs or gallops. ABDOMINAL: Soft, nontender, nondistended, normal bowel sounds MUSCULOSKELETAL: Reproducible left-sided rib tenderness to palpation with no crepitus or deformity NEURO: Alert. Cranial nerves II through XII intact. Good gait. Good coordination SKIN: Warm, dry. Normal Color Course Vital Signs Vital signs: Vital Signs Temperature 97.7 F 08/24/25 08:24 Pulse Rate 56 L 08/24/25 08:24 Respiratory Rate 16 08/24/25 08:24 Temperature 97.7 F 08/24/25 08:24 Pulse Rate 52 L 08/24/25 10:35 Respiratory Rate 16 08/24/25 10:35 Blood Pressure 118/70 08/24/25 10:35 Pulse Oximetry 97 08/24/25 10:35 Medical Decision Making MDM Narrative Medical decision making narrative: 80-year-old male presents to the emergency department for evaluation for left-sided rib pain. Patient is currently afebrile with no leukocytosis hemoglobin of 13.9. Patient has a creatinine of 1.94 which is similar to his baseline. Lipase is elevated at 491. CT chest abdomen pelvis shows evidence of a right lung mass which family was aware of and has had a prior PET scan for. CT scan also showed a left 7th rib fracture which I believe is the cause for all of the patient's symptoms. I did discuss various pain control options with patient and family we decided to try tramadol. Patient was also provided incentive spirometer. Patient was encouraged of close follow-up with primary care physician. Patient family were encouraged to return to the emergency department patient's any worsening symptoms. All questions concerns were addressed. Patient was well-appearing at time of discharge. Differential Diagnosis Differential Diagnosis: Pneumonia, pulmonary embolism, rib fracture, rib contusion, lung mass, ureteral calculi, UTI Vital Signs Vital Signs: Vital Signs Temperature 97.7 F 08/24/25 08:24 Pulse Rate 56 L 08/24/25 08:24 Respiratory Rate 16 08/24/25 08:24 Temperature 97.7 F 08/24/25 08:24 Pulse Rate 52 L 08/24/25 10:35 Respiratory Rate 16 08/24/25 10:35 Blood Pressure 118/70 08/24/25 10:35 Pulse Oximetry 97 08/24/25 10:35 Lab Data Lab results reviewed: Yes I reviewed the patient's lab results. 08/24/25 08:47 08/24/25 08:47 Labs: Lab Results 08/24/25 Range/Units 08:47 WBC 7.6 (4.5-10.0) K/mm3 RBC 4.87 (4.6-6.20) M/mm3 Hgb 13.9 L (14.0-18.0) g/dL Hct 42.6 (42.0-52.0) % MCV 87.5 (80-100) fl MCH 28.5 (26-34) pg MCHC 32.6 (32-36) g/dl RDW 14.0 (11.5-14.5) % Plt Count 166 (150-375) k/mm3 MPV 10.0 (7.4-10.4) fl Immature Gran % (Auto) 0.5 (0-0.5) % Neut % (Auto) 72.0 (45.5-73.1) % Lymph % (Auto) 15.0 L (18.3-44.2) % [place] % (Auto) 9.5 H (2.6-8.5) % Eos % (Auto) 2.2 (0-4.4) % Baso % (Auto) 0.8 (0.2-1.2) % Lymph # (Auto) 1.14 (0.9-3.2) K/mm3 [place] # (Auto) 0.7 H (0.1-0.6) K/mm3 Eos # (Auto) 0.2 (0-0.3) K/mm3 Baso # (Auto) 0.1 (0.0-0.1) K/mm3 Abs Immat Gran (auto) 0.04 H (0.00-0.031) K/mm3 Absolute Neuts (auto) 5.5 (1.3-6.7) K/mm3 Absolute Nucleated RBC 0.000 (0.0-0.012) K/mm3 Nucleated RBC % 0.0 (0.0-0.2) % PT 17.4 H (11.1-14.7) Seconds INR 1.4 APTT 35.0 (22.3-36.8) Seconds Sodium 139 (137-145) mmol/L Potassium 4.5 (3.4-5.0) mmol/L Chloride 102 (98-107) mmol/L Carbon Dioxide 28 (22-30) mmol/L Anion Gap 9 (4-12) mmol/L BUN 50 H D (9-20) mg/dL Creatinine 1.94 H (0.7-1.3) mg/dL Estim Creat Clear Calc 39 ml/min Estimated GFR 33 L (59 - ) Glucose 159 H (65-110) mg/dL Calcium 8.9 (8.4-10.2) mg/dL Total Bilirubin 1.0 (0.2-1.3) mg/dL AST 18 (17-59) U/L ALT 14 (6-50) U/L Alkaline Phosphatase 103 (38-126) U/L Troponin I < 0.012 (0.000-0.034) ng/mL Total Protein 7.5 (6.3-8.2) g/dL Albumin 3.9 (3.5-5.1) g/dL Lipase 491 H (23-300) U/L Imaging Data Radiologist's impression: Impressions Chest X-Ray 08/24/25 09:19 IMPRESSION: 1: Small opacities in the mid and lower lungs which represents atelectasis/scarring or infiltrates. 2. There is a 1.3 cm nodular density projecting over the right lower hemithorax. Differential includes nipple shadow or pulmonary nodule. A chest CT is recommended. Chest/Abdomen/Pelvis CT 08/24/25 09:45 IMPRESSION: 1. Mass and nodule in right lung lower lobe and lytic lesions of bone, consistent with primary bronchogenic carcinoma and metastatic disease. 2. Acute fracture of left seventh rib. Discharge Plan Discharge Clinical Impression: Fracture of left seventh rib Patient Disposition: Home Condition: Stable Instructions: Antibiotic Form, How to Use an Incentive Spirometer (ED), Rib Fracture (ED) Additional Instructions: Tylenol for pain control. Tramadol as needed for additional pain control. Flexeril for muscle spasm. Incentive spirometer as directed. Have close follow-up with your primary care physician. If you have any worsening symptoms including uncontrolled pain, onset of fever or worsening shortness of breath then please call or return to the emergency department. Patient Language: Yakut Prescriptions: New tramadol 50 mg tablet 50 mg PO BID PRN (Reason: pain) Qty: 14 0RF cyclobenzaprine 10 mg tablet 10 mg PO BID PRN (Reason: muscle spasm) Qty: 14 0RF No Action mecobalamin (vitamin B12) 500 mcg tablet,chewable 500 mcg PO DAILY rosuvastatin 40 mg tablet 40 mg PO DAILY fluticasone propionate [Flonase Allergy Relief] 50 mcg/actuation spray,suspension 2 spray intranasal DAILY PRN (Reason: nasal congestion) Qty: 16 0RF Rx Instructions: administer into each nostril bacitracin 500 unit/gram ointment 1 applic topical BID PRN (Reason: rash) Qty: 300 3RF magnesium glycinate 100 mg tablet 400 mg PO DAILY triamcinolone acetonide 0.1 % cream 1 applic topical QID Qty: 80 0RF tamsulosin 0.4 mg capsule PO (DME) blood-glucose meter Misc See Rx Instructions .Route Qty: 1 0RF Rx Instructions: Use to check BS once daily acetaminophen 325 mg tablet 650 mg PO Q4H PRN (Reason: Pain) Qty: 60 1RF nebivolol [Bystolic] 20 mg tablet 20 mg PO DAILY Qty: 90 1RF Entresto 24-26 mg tablet 1 tablet PO BID Qty: 180 1RF mupirocin 2 % ointment 1 applic topical BID Qty: 22 2RF dapagliflozin propanediol [Farxiga] 10 mg tablet 10 mg PO QAM Qty: 90 1RF (DME) blood-glucose meter [Contour Plus Blue Meter] Misc See Rx Instructions .Route Qty: 1 0RF Rx Instructions: As directed (DME) Contour Plus Test Strip Strip See Rx Instructions .Route Qty: 200 1RF Rx Instructions: As directed BID AC and prn clobetasol 0.05 % cream 1 applic topical BID Qty: 60 1RF (DME) lancets [CareSens Lancets] 30 gauge misc See Rx Instructions .Route Qty: 200 3RF Rx Instructions: Use twice daily and PRN Eliquis 5 mg tablet See Rx Instructions .ROUTE .COMPLEX Qty: 180 1RF Dose Instruction: TAKE 1 TABLET BY MOUTH EVERY 12 HOURS Rx Instructions: TAKE 1 TABLET BY MOUTH EVERY 12 HOURS furosemide 40 mg tablet 40 mg PO DAILY Qty: 90 1RF Follow-up/Referrals: Fili Brown MD [Primary Care Provider, Family Practice]
[2025-08-24] MEDS: traMADol HCL (*CRX) 50 MG TABLET PO (10:17)
[2025-08-24 10:35] VITALS: BP 118/70; PULSE 52; RESP 16; O2SAT 97
== END 2025-08-24 10:37 | disposition home or self-care (01) ==
PROVIDERS: Emergency Provider Emergency Medicine; PCP Family Medicine
DX: S22.32XA Fracture of one rib, left side, initial encounter for closed fracture (principal); I11.0 Hypertensive heart disease with heart failure; I50.9 Heart failure, unspecified; I27.20 Pulmonary hypertension, unspecified; I48.91 Unspecified atrial fibrillation; E78.5 Hyperlipidemia, unspecified; E66.01 Morbid (severe) obesity due to excess calories; Z68.41 Body mass index [BMI] 40.0-44.9, adult; E53.9 Vitamin B deficiency, unspecified; M10.9 Gout, unspecified; G47.33 Obstructive sleep apnea (adult) (pediatric); G62.9 Polyneuropathy, unspecified; R91.8 Other nonspecific abnormal finding of lung field; Z66 Do not resuscitate; Z98.61 Coronary angioplasty status; Z86.718 Personal history of other venous thrombosis and embolism; Z87.891 Personal history of nicotine dependence; Z86.0100 Personal history of colon polyps, unspecified; Z85.46 Personal history of malignant neoplasm of prostate; Z96.1 Presence of intraocular lens; Z98.49 Cataract extraction status, unspecified eye; R91.1 Solitary pulmonary nodule; I44.0 Atrioventricular block, first degree; R00.1 Bradycardia, unspecified; X58.XXXA Exposure to other specified factors, initial encounter
CPT/HCPCS: 36415; 71046; 71250; 74176; 80053; 83690; 84484; 85025; 85610; 85730; 93005; 99284; A9270

== ENCOUNTER 2025-08-31 15:35 | Emergency (ER) | payer MEDICARE, MEDICAID, SELFPAY ==
[2025-08-31] VITALS (20 sets, daily range): BP systolic 125–149; BP diastolic 56–78; PULSE 55–74; RESP 13–23; TEMP 36.1–36.6; O2SAT 93–100
--- NOTE | ~2025-08-31 | CT_ITS ---
CT abdomen pelvis w con INDICATION:R upper abd pain, recent constipatoin . COMPARISON: None. TECHNIQUE: Axial images of the abdomen and pelvis were obtained following infusion of 100 mL Isovue 300. Dose optimization technique was utilized. FINDINGS: 3.9 x 3.7 cm mass at the right lung base is noted. There is adjacent 1.1 x 1.5 cm nodule. The liver parenchyma is unremarkable. No intrahepatic mass or ductal dilatation is evident. Gallbladder is filled with stones. The pancreas and spleen are normal in appearance. The adrenal glands are symmetric in size. The kidneys demonstrate symmetric uptake and excretion of contrast. 6 x 5 cm right renal cyst is noted. Left renal cyst measures 3.7 x 3 cm. There is no solid mass. There is no hydronephrosis. Evaluation of the stomach and bowel loops are limited due to lack of oral contrast. There is no bowel obstruction or evidence of acute appendicitis. There are colonic diverticulosis without evidence of acute diverticulitis. The bladder and rectum are normal. Heterogeneous prostate gland is noted. No free intraperitoneal fluid or air is evident. There is no significant retroperitoneal lymphadenopathy. Aortic biiliac endograft is noted. The lower thoracic and lumbar vertebrae are in normal alignment. IMPRESSION: Right lung mass measures 3.9 cm with adjacent nodule measuring 1.5 cm suggestive of malignancy. There is colonic diverticulosis without evidence of acute diverticulitis. Heterogeneous prostate gland is noted. All CT scans at this facility are performed using low dose modulation techniques as appropriate to perform exam including the following: automated exposure control; use of iterative reconstruction technique; adjustment of the mA and/or kV according to patient size (this includes techniques or standardized protocols for targeted exams where dose is matched to indication/reason for exam). Reviewed, dictated and finalized at location S. IMPRESSION: Right lung mass measures 3.9 cm with adjacent nodule measuring 1.5 cm suggestiv e of malignancy. There is colonic diverticulosis without evidence of acute diverticulitis. Heterogeneous prostate gland is noted. All CT scans at this facility are performed using low dose modulation techniqu es as appropriate to perform exam including the following: automated exposure c ontrol; use of iterative reconstruction technique; adjustment of the mA and/or kV according to patient size (this includes techniques or standardized protocol s for targeted exams where dose is matched to indication/reason for exam).
--- OUTSIDE RECORDS SUMMARY | 2025-08-31 17:32 | XMS_ITS | Clinical Summary ---
Author Organization [facility] [address] Address [address] [place] [address] Care Team Providers Care Guide Travel Name Role Phone Fili Brown MD Primary Care Provider [phone] [phone] Allergies Active Allergy Reactions Criticality Noted Date [...] mass 09/23/2023 Coronary artery disease invo lving chippewa-cree coronary artery of [place]cree heart without angina pectoris 04/11/2023 CAD in chip[place]cree artery 04/10/2023 S/P right coronary artery (RCA) stent placement 04/10/2023 Chronic diastolic congestive heart failure 08/28 Preoperative clearance 08/28/2022 Paroxysmal atrial fibrillation 08/28/2022 AAA (abdominal aortic aneurysm) without rupture 07/09/2022 Assessment & Plan (10/20/2024 9:32 AM TREASURY ASSOCIATE): Stent graft patent in good position with no endoleak. Follow up 1 year with duplex surveillance. Assessment & Plan (11/04/2023 12:47 PM TREASURY ASSOCIATE): Impression: Patient is status post endovascular repair [...] 07/09/2022 Assessment & Plan (10/20/2024 9:34 AM TREASURY ASSOCIATE): Diabetes chronic controlled. Continue current medical management. Congestive heart failure 06/12/2022 Overview (06/12/2022): Added automatically from request for surgery [id number] Abnormal stress test 06/12/2022 Overview (06/12/2022): Added automatically from request for surgery [id number] Obstructive sleep apnea on CPAP 08/07/2021 Essential (primary) hypertension 03/13/2019 Assessment & Plan (10/20/2024 9:34 AM TREASURY ASSOCIATE): Hypertension chronic controlled. Continue current medical management. [...] Comments Atrial fibrillation (HCC) Hypertension Diabetes mellitus Sleep apnea Chronic kidney disease Stage III ESRD Type 2 diabetes mellitus Obesity Family History Medical History Relation Name Comments Diabetes Father Hypertension Father Stroke Father Hypertension Mother Lung cancer Sister Relation Name Status Comments Father (Age 67) Mother (Age 87) Sister Social History Tobacco Use Types Packs/Day Years Used Date Smoking Tobacco: Former Cigarettes 2.5 30 1 962 - 1991 Smokeless Tobacco: Never Tobacco Cessation:Counseling Given: Not Answered [facility] [employer] Answer Date Recorded In the past 12 months has e [employer] gas, oil, or water [employer] threatened to shut off services in your [...] week 10/15/2023 How often do you attend chur or spiritism services? Never 10/15/2023 Do you belong to any clubs o r organizations such as sikhism groups, unions, fraternal or athletic groups, or [...] place to sleep or slept in a assisted (including now)? No 10/15/2023 Personal Safety Answer Date Recorded Have you ever been in or are you currently in a harmful physical or emotional relationship or is someone making you feel afraid or unsafe? Denies 10/15/2023 Sex and Gender Information Value Date Recorded Sex Assigned at Not on file Legal Sex Male 12:49 AM TREASURY ASSOCIATE Gender Identity Not on file Sexual Orientation [...] history exists Medical Devices Implanted Type Area Laundromat Manager Device Identifier Shelf Expiration Date Model / Serial / Lot Wl [employer] Excluder 14.5mm 32mm 14cm 6.5cm Conformable Active Control Trunk [id number] - [id number] - [id number] Implanted:Qty: 1 on 10/15/2023 by Rufino Sen MD at [facility] Graft N/A: Aorta Wl [employer] [id number] 07/21/2026 [id number] / [id number] / Wl [employer] Excluder 18mm 14.5-16.5mm 11.5cm Stent Abrasion Resistant [id number] - [id number] - [id number] Implanted:Qty: 1 on 10/15/2023 by Norberto Das MD at [facility] Graft Left: Iliac Wl [employer] [id number] 05/07/2026 [id number] / [id number] / Wl [employer] Excluder 18mm 14.5-16.5mm 9.5cm Stent Abrasion Resistant [id number] - [id number] - [id number] Implanted:Qty: 1 on 10/15/2023 by Rufino Sen MD at [facility] Graft Right: Iliac Wl [employer] [id number] 01/29/2026 [id number] / [id number] / [employer] Beth Synergy Xd 3mm 48mm System Coronary Stent Everolimus [id number] - [id number] Implanted:Qty: 1 on 04/10/2023 by Hever Verde MD at [facility] [employer] 11/25/2024 [id number] / / [id number] [employer] Device Vascular Closure Femoral Artery Bioabsorbable Dual Method Vascade 6-7fr Collagen [id number] - [id number] Implanted:Qty: 1 on 04/10/2023 by Hever Verde MD at [facility] [employer] [id number] / / Procedures Procedure Name Priority Date/Time Associated Diagnosis Comments COMPREHENSIVE METABOLIC PANEL Routine 12/22/2024 9:52 AM TREASURY ASSOCIATE Coronary artery disease involving chippewa-cree coronary artery of chippewa-cree heart without angina pectoris Paroxysmal atrial fibrillation (HCC) Mixed hyperlipidemia Essential hypertension S/P right coronary artery (RCA) stent placement Chronic diastolic congestive heart failure (HCC) LIPID PANEL Routine 12/22/2024 9:52 AM TREASURY ASSOCIATE Coronary artery disease involving chip[place]-cree coronary artery of chippewa-cree heart without angina pectoris Paroxysmal atrial fibrillation (HCC) Mixed hyperlipidemia Essential hypertension S/P right coronary artery (RCA) stent placement Chronic diastolic congestive heart failure (HCC) HEMOGLOBIN A1C Routine 10/07/2023 1:33 PM TREASURY ASSOCIATE Type 2 diabetes mellitus with diabetic neuropathy, unspecified whether marker assembler insulin use (HCC) ALBUMIN CREATININE RATIO, URINE Routine 02/28/2023 1:34 PM CDT from Last 3 Months or Most Recently Relevant to Health Maintenance Results * (ABNORMAL) Lipid panel (12/22/2024 9:52 AM TREASURY ASSOCIATE) [facility] Cholesterol 124 <200 mg/dL Urban LadderS victorina Morales HDL 40 > OR = 40 mg/dL Urban LadderAnt Morales Triglycerides 229(H) <150 mg/dL BantrSoniaS victorina Morales Comment: If a non-fasting specimen was collected, consider repeat triglyceride testing on a fasting specimen if clinically indicated. Doreen et al. J. of Clin. Lipidol. 2015;9:129-169. LDL 55 mg/dL (calc) Drew [email or web address] Morales Comment: Reference range: <100 Desirable range <100 mg/dL for primary prevention; <70 mg/dL for patients with CHD or diabetic patients with > or = 2 CHD risk factors. LDL-C is now calculated using the Giancarlo-Rosenberg calculation, which is a validated novel method providing better accuracy than the Friedewald equation in the estimation of LDL-C. Giancarlo ZACARIAS et al. YURIY. 2013;310(19): 7899-9571 (http://education.NLP Logix/faq/PJU921) Chol/HDL ratio 3.1 <5.0 (calc) Urban LadderAnt Morales Non-HDL, (LDL+VLDL) 84 <130 mg/dL (calc) Urban LadderAnt Morales Comment: For patients with diabetes plus 1 major ASCVD risk factor, treating to a non-HDL-C goal of <100 mg/dL (LDL-C of <70 mg/dL) is considered a therapeutic option. Blood 12/22/2024 9:52 AM TREASURY ASSOCIATE 12/22/2024 9:52 AM TREASURY ASSOCIATE Narrative QUEST - 12/22/2024 5:09 PM TREASURY ASSOCIATE FASTING:YES FASTING: YES us Hever Verde MD LAB BLOOD ORDERABLES Final Result [facility] [address] [place] [address] * (ABNORMAL) Comprehensive metabolic panel (12/22/2024 9:52 AM TREASURY ASSOCIATE) Glucose 158(H) 65 - 99 mg/dL Urban LadderAnt prajapati Andrew Comment: Fasting reference interval For someone without known diabetes, a glucose value >125 mg/dL indicates that they may have diabetes and this should be confirmed with a follow-up test. BUN 44(H) 7 - 25 mg/dL Drew [email or web address] prajapati Andrew Creatinine 2.12(H) 0.70 - 1.22 mg/dL Drew [email or web address] prajapati Andrew eGFR 31(L) > OR = 60 mL/min/1.7 3m2 Drew [email or web address] prajapati Andrew BUN/creat ratio 21 6 - 22 (calc) Drew TaleSpringAnt prajapati Andrew Sodium 140 135 - 146 mmol/L Drew [email or web address] prajapati Andrew Potassium, pl 4.3 3.5 - 5.3 mmol/L Drew AlfredPressmartAnt Morales Chloride 103 98 - 110 mmol/L Bantr-Ant Morales CO2 28 20 - 32 mmol/L Urban LadderAnt prajapati Andrew Calcium 8.9 8.6 - 10.3 mg/dL Drew [email or web address] Morales Protein, sr 7.0 6.1 - 8.1 g/dL Drew [email or web address] prajapati Andrew Albumin 3.9 3.6 - 5.1 g/dL Drew [email or web address] prajapati Andrew GLOBULIN 3.1 1.9 - 3.7 g/dL (calc) Urban LadderAnt prajapati Andrew Alb/glob ratio 1.3 1.0 - 2.5 (calc) Urban LadderAnt prajapati Andrew Bilirubin, total 0.7 0.2 - 1.2 mg/dL Urban LadderAnt prajapati Andrew Alk phos 58 35 - 144 U/L Urban LadderAnt prajapati Andrew AST 11 10 - 35 U/L Urban LadderAnt prajapati Andrew ALT (SGPT) 13 9 - 46 U/L Urban LadderAnt prajapati Andrew Blood 12/22/2024 9:52 AM TREASURY ASSOCIATE 12/22/2024 9:52 AM TREASURY ASSOCIATE Narrative QUEST - 12/22/2024 5:09 PM TREASURY ASSOCIATE FASTING:YES FASTING: YES us Hever Verde MD LAB BLOOD ORDERABLES Final Result Performing Organization Address [facility] Co de Phone Number [facility] [address] [place] [address] * (ABNORMAL) Hemoglobin A1c (10/07/2023 1:33 PM TREASURY ASSOCIATE) Hgb A1C 7.1(H) 4.0 - 5.6 % MULUGETA Estimated Average Glucose 157 mg/dL MULUGETA Comment: The ADA recommends reporting an estimated Average Glucose (eAG) with all Hemoglobin A1c results using the equation derived from a study of 507 normal and diabetic adults. Minority populations were underrepresented and children were not included. (Diabetes Care 31:0971-7615, 2008). The eAG is not equivalent to a fasting glucose. Blood 10/07/2023 1:33 PM TREASURY ASSOCIATE 10/07/2023 1:38 PM TREASURY ASSOCIATE Rufino Sen MD LAB BLOOD ORDERABLES Final Result Performing Organization Address [facility] Co de Phone Number [facility] [address] [facility] Department [place] [address] * (ABNORMAL) Albumin Creatinine Ratio, Urine (02/28/2023 [...] 03/02/2023 12:35 PM CDT FASTING:NO FASTING: NO Fili Brown MD LAB URINE ORDERABLES Aby harpal Result DREW [facility] [id number] [place] [phone] from Last 3 Months or Most Recently Relevant to Health Maintenance Insurance [facility] MEDICARE ADVANTAGE * Guarantor: Boris Hernandez Account Type Relation to Patient Date of Phone Billing Address Personal/Family Self 1945 [address] [facility] [address] [place] [id number] [facility] MEDICARE ADVANTAGE IDPA Advance Directives For more information, please contact: [phone] * Full Code (Latest Code Status on File) Date Activated Date Inactivated Comments 10/15/2023 10:25 AM 10/17/2023 10:50 PM * Full Code Date Activated Date Inactivated Comments 10/15/2023 10:23 AM 10/15/2023 10:25 AM * Full Code Date Activated Date Inactivated Comments 04/10/2023 5:27 PM 04/11/2023 5:21 PM * Full Code Date Activated Date Inactivated Comments 04/10/2023 2:00 PM 04/10/2023 5:27 PM Care Teams Guide Travel Relationship Specialty Start Date End Date Fili Brown MD PCP - General Family Medicine 05/02/21
--- OUTSIDE RECORDS SUMMARY | 2025-08-31 17:32 | XMS_ITS | Clinical Summary ---
Author Organization [facility] Magalie Bynum Address [address] [place] [address] Care Team Providers Care Circular Ripsaw Operator Name Role Phone Fili Brown MD Primary Care Provider +1- [phone] Allergies Active Allergy Reactions Criticality Noted Date [...] on file Legal Sex Male 10:34 AM SHIFT PRODUCTION ASSOCIATE Gender Identity Not on file Sexual [...] Height 182.9 cm (6') 01/06/2023 10:19 AM SHIFT PRODUCTION ASSOCIATE Body Mass Index 42.31 01/06/2023 10:19 AM SHIFT PRODUCTION ASSOCIATE Plan of Treatment Health Maintenance Due Date [...] file Group ID:Not on file Type:Medicaid Address: [address] [id number] MEDICARE PART A AND B [facility] SUPP Care Teams Circular Ripsaw Operator Relationship Specialty Start Date End Date Fili Brown MD PCP - General Family Practice 01/06/23
[2025-08-31 18:37] LABS: Hematocrit 41.8 % (42.0-52.0); Hemoglobin 13.5 g/dL (14.0-18.0); Immature Granulocyte Percent A 0.5 % (0-0.5); Lymphocytes Absolute Auto 1.17 K/mm3 (0.9-3.2); Mean Corpuscular HGB Conc 32.3 g/dl (32-36); Mean Corpuscular Hemoglobin 28.6 pg (26-34); Mean Corpuscular Volume 88.6 fl (80-100); Nucleated Red Blood Cells Absolute Auto 0.000 K/mm3 (0.0-0.012); Nucleated Red Blood Cells Perc 0.0 % (0.0-0.2); Platelet Count Result 192 k/mm3 (150-375); Red Blood Count 4.72 M/mm3 (4.6-6.20); White Blood Count 7.8 K/mm3 (4.5-10.0)
[2025-08-31 18:48] LABS: Alanine Aminotransferase 23 U/L (6-50); Albumin Level 3.9 g/dL (3.5-5.1); Alkaline Phosphatase 90 U/L (38-126); Anion Gap 4 mmol/L (4-12); Aspartate Amino Transferase 27 U/L (17-59); Bilirubin,Total 1.0 mg/dL (0.2-1.3); Blood Urea Nitrogen 49 mg/dL (9-20); Calcium 8.6 mg/dL (8.4-10.2); Carbon Dioxide 33 mmol/L (22-30); Chloride 102 mmol/L (98-107); Estimated Glomerular Filt Rate 32; Glucose 140 mg/dL (65-110); Lipase 145 U/L (23-300); Potassium 5.0 mmol/L (3.4-5.0); Sodium 139 mmol/L (137-145); Total Protein 7.5 g/dL (6.3-8.2)
--- OUTSIDE RECORDS SUMMARY | 2025-08-31 18:51 | XMS_ITS | Clinical Summary ---
Author Organization [facility] [address] Address [address] [place] [address] Care Team Providers Care Deployment Manager Name Role Phone Fili Brown MD Primary Care Provider +1 -[phone] Allergies Active Allergy Reactions Criticality Noted Date [...] mass 09/23/2023 Coronary artery disease invo lving [place] coronary artery of [place] heart without angina pectoris 04/11/2023 CAD in [place] artery 04/10/2023 S/P right coronary artery (RCA) stent placement 04/10/2023 Chronic diastolic congestive heart failure 08/28 Preoperative clearance 08/28/2022 Paroxysmal atrial fibrillation 08/28/2022 AAA (abdominal aortic aneurysm) without rupture 07/09/2022 Assessment & Plan (10/20/2024 9:32 AM SNOW FENCE ERECTOR): Stent graft patent in good position with no endoleak. Follow up 1 year with duplex surveillance. Assessment & Plan (11/04/2023 12:47 PM SNOW FENCE ERECTOR): Impression: Patient is status post endovascular repair [...] 07/09/2022 Assessment & Plan (10/20/2024 9:34 AM SNOW FENCE ERECTOR): Diabetes chronic controlled. Continue current medical management. Congestive heart failure 06/12/2022 Overview (06/12/2022): Added automatically from request for surgery [id number] Abnormal stress test 06/12/2022 Overview (06/12/2022): Added automatically from request for surgery [id number] Obstructive sleep apnea on CPAP 08/07/2021 Essential (primary) hypertension 03/13/2019 Assessment & Plan (10/20/2024 9:34 AM SNOW FENCE ERECTOR): Hypertension chronic controlled. Continue current medical management. [...] Tobacco: Never Tobacco Cessation:Counseling Given: Not Answered [facility] [employer] Answer Date Recorded In the past 12 months has e [employer], gas, oil, or water [employer] threatened to shut off services in your [...] How often do you attend chur or oriental orthodox services? Never 10/15/2023 Do you belong to any clubs o r organizations such as baptist groups, unions, fraternal or athletic groups, or [...] place to sleep or slept in a chcf (including now)? No 10/15/2023 Personal Safety Answer Date Recorded Have you ever been in or are you currently in a harmful physical or emotional relationship or is someone making you feel afraid or unsafe? Denies 10/15/2023 Sex and Gender Information Value Date Recorded Sex Assigned at Not on file Legal Sex Male 12:49 AM SNOW FENCE ERECTOR Gender Identity Not on file Sexual Orientation [...] history exists Medical Devices Implanted Type Area Community Mental Health Social Worker Device Identifier Shelf Expiration Date Model / Serial / Lot Wl [employer] Excluder 14.5mm 32mm 14cm 6.5cm Conformable Active Control Trunk [id number] - [id number] - [id number] Implanted:Qty: 1 on 10/15/2023 by Rufino Sen MD at [facility] Graft N/A: Aorta Wl [employer] [id number] 07/21/2026 [id number] / [id number] / Wl [employer] Excluder 18mm 14.5-16.5mm 11.5cm Stent Abrasion Resistant [id number] - [id number] - [id number] Implanted:Qty: 1 on 10/15/2023 by Norberto Das MD at [facility] Graft Left: Iliac Wl [employer] [id number] 05/07/2026 [id number] / [id number] / Wl [employer] Excluder 18mm 14.5-16.5mm 9.5cm Stent Abrasion Resistant [id number] - [id number] - [id number] Implanted:Qty: 1 on 10/15/2023 by Rufino Sen MD at [facility] Graft Right: Iliac Wl [employer] [id number] 01/29/2026 [id number] / [id number] / [employer] Beth Synergy Xd 3mm 48mm System Coronary Stent Everolimus [id number] - [id number] Implanted:Qty: 1 on 04/10/2023 by Hever Verde MD at [facility] [employer] 11/25/2024 [id number] / [id number] [email or web address] Device Vascular Closure Femoral Artery Bioabsorbable Dual Method Vascade 6-7fr Collagen [id number] - [id number] Implanted:Qty: 1 on 04/10/2023 by Hever Verde MD at [facility] [employer] [id number] / / Procedures Procedure Name Priority Date/Time Associated Diagnosis Comments COMPREHENSIVE METABOLIC PANEL Routine 12/22/2024 9:52 AM SNOW FENCE ERECTOR Coronary artery disease involving [place] coronary artery of [place] heart without angina pectoris Paroxysmal atrial fibrillation (HCC) Mixed hyperlipidemia Essential hypertension S/P right coronary artery (RCA) stent placement Chronic diastolic congestive heart failure (HCC) LIPID PANEL Routine 12/22/2024 9:52 AM SNOW FENCE ERECTOR Coronary artery disease involving [place] coronary artery of [place] heart without angina pectoris Paroxysmal atrial fibrillation (HCC) Mixed hyperlipidemia Essential hypertension S/P right coronary artery (RCA) stent placement Chronic diastolic congestive heart failure (HCC) HEMOGLOBIN A1C Routine 10/07/2023 1:33 PM SNOW FENCE ERECTOR Type 2 diabetes mellitus with diabetic neuropathy, unspecified whether terminal operations supervisor insulin use (HCC) ALBUMIN CREATININE RATIO, URINE Routine 02/28/2023 1:34 PM CDT from Last 3 Months or Most Recently Relevant to Health Maintenance Results * (ABNORMAL) Lipid panel (12/22/2024 9:52 AM SNOW FENCE ERECTOR) [facility] Cholesterol 124 <200 mg/dL [employer] victorina Morales HDL 40 > OR = 40 mg/dL [facility] ApparelAnt Morales Triglycerides 229(H) <150 mg/dL CompassMedSoniaS victorina Morales Comment: If a non-fasting specimen was collected, consider repeat triglyceride testing on a fasting specimen if clinically indicated. Doreen et al. J. of Clin. Lipidol. 2015;9:129-169. LDL 55 mg/dL (calc) Drew FamelyAnt Morales Comment: Reference range: <100 Desirable range <100 mg/dL for primary prevention; <70 mg/dL for patients with CHD or diabetic patients with > or = 2 CHD risk factors. LDL-C is now calculated using the Giancarlo-Rosenberg calculation, which is a validated novel method providing better accuracy than the Friedewald equation in the estimation of LDL-C. Giancarlo ZACARIAS et al. YURIY. 2013;310(19): 6875-4609 (http://education.[employer]/faq/QOM807) Chol/HDL ratio 3.1 <5.0 (calc) [facility] Apparel[facility] Morales Non-HDL, (LDL+VLDL) 84 <130 mg/dL (calc) [facility] Morales Comment: For patients with diabetes plus 1 major ASCVD risk factor, treating to a non-HDL-C goal of <100 mg/dL (LDL-C of <70 mg/dL) is considered a therapeutic option. Blood 12/22/2024 9:52 AM SNOW FENCE ERECTOR 12/22/2024 9:52 AM SNOW FENCE ERECTOR Narrative QUEST - 12/22/2024 5:09 PM SNOW FENCE ERECTOR FASTING:YES FASTING: YES us Hever Verde MD LAB BLOOD ORDERABLES Final Result D[facility] [address] [place] [address] * (ABNORMAL) Comprehensive metabolic panel (12/22/2024 9:52 AM SNOW FENCE ERECTOR) Glucose 158(H) 65 - 99 mg/dL [employer] [employer] ApparelAnt prajapati Andrew Comment: Fasting reference interval For someone without known diabetes, a glucose value >125 mg/dL indicates that they may have diabetes and this should be confirmed with a follow-up test. BUN 44(H) 7 - 25 mg/dL Drew FamelyAnt prajapati Andrew Creatinine 2.12(H) 0.70 - 1.22 mg/dL Drew FamelyAnt prajapati Andrew eGFR 31(L) > OR = 60 mL/min/1.7 3m2 Drew FamelyAnt prajapati Andrew BUN/creat ratio 21 6 - 22 (calc) Drew TheFanLeagueAnt prajapati Andrew Sodium 140 135 - 146 mmol/L Drew FamelyAnt prajapati Andrew Potassium, pl 4.3 3.5 - 5.3 mmol/L Drew AlfredVenturesityAnt Morales Chloride 103 98 - 110 mmol/L CompassMed-Ant Morales CO2 28 20 - 32 mmol/L [facility] App[employer] prajapati Andrew Calcium 8.9 8.6 - 10.3 mg/dL Drew FamelyAnt Morales Protein, sr 7.0 6.1 - 8.1 g/dL Drew FamelyAnt prajapati Andrew Albumin 3.9 3.6 - 5.1 g/dL Drew FamelyAnt prajapati Andrew GLOBULIN 3.1 1.9 - 3.7 g/dL (calc) [employer] [facility] [employer] prajapati Andrew Alb/glob ratio 1.3 1.0 - 2.5 (calc) [employer] prajapati Andrew Bilirubin, total 0.7 0.2 - 1.2 mg/dL [employer] [facility] [employer] prajapati Andrew Alk phos 58 35 - 144 U/L [employer] prajapati Andrew AST 11 10 - 35 U/L [employer] prajapati Andrew ALT (SGPT) 13 9 - 46 U/L [employer] [facility] [employer] prajapati Andrew Blood 12/22/2024 9:52 AM SNOW FENCE ERECTOR 12/22/2024 9:52 AM SNOW FENCE ERECTOR Narrative QUEST - 12/22/2024 5:09 PM SNOW FENCE ERECTOR FASTING:YES FASTING: YES us Hever Verde MD LAB BLOOD ORDERABLES Final Result Performing Organization Address [facility] Co de Phone Number [facility] [address] [place] [address] * (ABNORMAL) Hemoglobin A1c (10/07/2023 1:33 PM SNOW FENCE ERECTOR) Hgb A1C 7.1(H) 4.0 - 5.6 % MULUGETA Estimated Average Glucose 157 mg/dL MULUGETA Comment: The ADA recommends reporting an estimated Average Glucose (eAG) with all Hemoglobin A1c results using the equation derived from a study of 507 normal and diabetic adults. Minority populations were underrepresented and children were not included. (Diabetes Care 31:0882-9099, 2008). The eAG is not equivalent to a fasting glucose. Blood 10/07/2023 1:33 PM SNOW FENCE ERECTOR 10/07/2023 1:38 PM SNOW FENCE ERECTOR Rufino Sen MD LAB BLOOD ORDERABLES Final Result Performing Organization Address [facility] Co de Phone Number [facility] [address] [facility] [place] [address] * (ABNORMAL) Albumin Creatinine Ratio, [...] ORDERABLES Aby harpal Result DREW [facility] [id number] [place] [address] from Last 3 Months or Most Recently Relevant to Health Maintenance Insurance [facility] MEDICARE ADVANTAGE * Guarantor: Boris Hernandez Account Type Relation to Patient Date of Phone Billing Address Personal/Family Self 1945 [address] [facility] [address] [place] [id number] [facility] MEDICARE ADVANTAGE IDPA Advance Directives For more information, please contact: [phone] * Full Code (Latest Code Status on File) Date Activated Date Inactivated Comments 10/15/2023 10:25 AM 10/17/2023 10:50 PM * Full Code Date Activated Date Inactivated Comments 10/15/2023 10:23 AM 10/15/2023 10:25 AM * Full Code Date Activated Date Inactivated Comments 04/10/2023 5:27 PM 04/11/2023 5:21 PM * Full Code Date Activated Date Inactivated Comments 04/10/2023 2:00 PM 04/10/2023 5:27 PM Care Teams Deployment Manager Relationship Specialty Start Date End Date Fili Brown MD PCP - General Family Medicine 05/02/21
--- OUTSIDE RECORDS SUMMARY | 2025-08-31 18:51 | XMS_ITS | Clinical Summary ---
Author Organization [facility] Magalie Bynum Address [address] [place] [address] Care Team Providers Care Electric Motor Assembler And Tester Name Role Phone Fili Brown MD Primary Care Provider +1- [phone] Allergies Active Allergy Reactions Criticality Noted Date [...] on file Legal Sex Male 10:34 AM OUTLET MANAGER Gender Identity Not on file Sexual Orientation [...] Height 182.9 cm (6') 01/06/2023 10:19 AM OUTLET MANAGER Body Mass Index 42.31 01/06/2023 10:19 AM OUTLET MANAGER Plan of Treatment Health Maintenance Due Date [...] file Group ID:Not on file Type:Medicaid Address: [address] [id number] MEDICARE PART A AND B [facility] SUPP Care Teams Electric Motor Assembler And Tester Relationship Specialty Start Date End Date Fili Brown MD PCP - General Family Practice 01/06/23
[2025-08-31 19:38] LABS: Add Urine Microscopic? NO; Appearance Urine Clear (Clear); Glucose Urine UA 3+ mg/dL (Negative); Leukocyte Esterase Ur Negative LEU/UL (Negative); Nitrate Urine Negative (Negative); Specific Grav Ur 1.015 (1.001-1.035)
--- NOTE | 2025-08-31 20:11 | ED.ABDPAIN ---
HPI - Abdominal Pain General Chief Complaint: Abdominal Pain Stated Complaint: abdominal pain right side Time Seen by Provider: 08/31/25 18:21 Source: patient Mode of arrival: ambulatory Limitations: no limitations History of Present Illness HPI narrative: Patient is an 80 y/o male who presents to the ED with c/o R sided abdominal pain. Patient reports he was seen here last week for L sided abdominal pain. He was found to have a L 7th rib fracture. Was discharged with tramadol and flexeril. States he has been doing well with these medications, however became constipated over the past couple days. At this time constipation began, he also began having pain in his R upper abdomen. Took laxatives at home and states these helped. He has since had multiple bowel movements, but reports having persistent pain in his right upper abdomen. Worse with movement. Denies nausea, vomiting, urinary complaints, fevers, shortness of breath. Related Data Home Medications ?Medication ?Instructions ?Recorded ?Confirmed ?Last Taken ?Type mecobalamin (vitamin B12) 500 mcg 500 mcg PO DAILY 03/04/23 08/01/25 Unknown History chewable tablet rosuvastatin 40 mg tablet 40 mg PO DAILY 01/24/25 08/01/25 Unknown History magnesium glycinate 100 mg (as 400 mg PO DAILY 05/11/25 08/01/25 Unknown History glycinate) tablet tamsulosin 0.4 mg capsule mg PO 08/01/25 08/01/25 Unknown History Allergies Allergy/AdvReac Type Severity Reaction Status Date / Time lisinopril Allergy Unknown vascular Verified 08/31/25 15:39 rash Sulfa (Sulfonamide Allergy Unknown tongue Verified 08/31/25 15:39 Antibiotics) swelling cephalexin AdvReac Unknown Nausea Verified 08/31/25 15:39 Review of Systems Review of Systems: All systems reviewed & are unremarkable except as noted in HPI. All systems reviewed & are unremarkable except as noted in HPI and below PMFSH Past Medical History Medical History DVT (deep venous thrombosis) Hypertension Hyperlipidemia DVT (deep venous thrombosis) right leg Lichen planus AAA (abdominal aortic aneurysm) CHF (congestive heart failure) Urticaria History of varicella Symptomatic cholelithiasis Pulmonary HTN Cholelithiases Atrial fibrillation Morbid obesity Gout Abdominal aortic aneurysm, without rupture Essential (primary) hypertension Obstructive sleep apnea (adult) (pediatric) Peripheral polyneuropathy Vitamin B deficiency, unspecified Surgical History Surgical History History of cataract extraction with lens replacement History of endovascular stent graft for abdominal aortic aneurysm (AAA) History of PTCA H/O colonoscopy with polypectomy Status post cystoscopy S/P knee surgery History of appendectomy Family History Family History Father , age 64, stroke Diabetes mellitus Hypertension Family history of elevated blood lipids Cerebrovascular accident Sibling AIDS Sibling Ovarian carcinoma Sibling Lung cancer Other Family history of malignant neoplasm Social History Social History Social History: Mr. Hernandez lives at home alone. He reports he is independent with his daily activities. 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 His primary care provider is Dr. Fili Brown. He designates his son, Fili, as his surrogate decision maker and he is a DNR. Smoking packs per day: 2 Smoking cigarettes per day: 40.0 Years smoked: 40 Smoking pack-years: 80.00 Smoking status: Former smoker Alcohol intake: never Substance use: never Do You Feel Safe in your Home?: Yes Lack of Transportation: No Lack of Food: Never True Current Housing: Decline to Answer Concerned About Future Housing: No Difficulty Paying Gas/Electric Bills: No Difficulty Paying for Meds: No Currently Unemployed: No Education: High School Diploma/GED Difficulty w/ Childcare or Family Care: No Gender identity (if verbalized by the patient): Male Spiritual care concerns: No Exam Narrative: GENERAL: Well appearing, morbidly obese, non-toxic, in no acute distress. HEAD: Normocephalic, atraumatic. RESPIRATORY: Airway patent, respirations nonlabored. Clear to auscultation bilaterally, no rales, rhonchi, wheezing. Lung sounds equal [place] CARDIOVASCULAR: Regular rate and rhythm without murmurs, rubs, or gallops. ABDOMINAL: Soft, mild TTP in epigastric region, RUQ, R mid abdomen, nondistended. Normoactive BS. Small umbilical hernia, soft, easily reducible MUSCULOSKELETAL: Moves all extremities. No gross deformities. SKIN: Warm, dry, normal color. NEURO: A&O X3. Speech clear. Cranial nerves II-XII grossly intact. Steady gait. No ataxic movements. PSYCHIATRIC: Appropriate mood and affect. Normal interaction. Course Vital Signs Vital signs: Vital Signs Temperature 97.0 F L 08/31/25 15:36 Pulse Rate 57 L 08/31/25 15:36 Respiratory Rate 20 08/31/25 15:36 Blood Pressure 148/60 H 08/31/25 15:36 Pulse Oximetry 97 08/31/25 15:36 Oxygen Delivery Room Air 08/31/25 15:36 Temperature 97.0 F L 08/31/25 15:36 Pulse Rate 57 L 08/31/25 15:36 Respiratory Rate 20 08/31/25 15:36 Blood Pressure 148/60 H 08/31/25 15:36 Pulse Oximetry 97 08/31/25 15:36 Oxygen Delivery Room Air 08/31/25 15:36 MDM - Abdominal Pain MDM Narrative Medical decision making narrative: Patient presented to ED with right upper abdominal pain over the past couple of days, was diagnosed last week with a left-sided rib fracture. Vital signs are stable upon arrival. Patient is in no acute distress. Declined pain medication in the ED. pain is worse with movement. Denying any shortness of breath. No hypoxia. Laboratory studies without significant acute findings or changes from previous. CKD, creatinine today consistent with baseline per records. Normal LFTs and lipase. UA with glucosuria, no signs of infection. CT scan of abdomen/pelvis was obtained and unremarkable. Does show mass in the right lung, which patient and family are aware of and have been previously evaluated for. Does show cholelithiasis without evidence of cholecystitis. No significant severe constipation. Personal review images does show some gas, but no significant stool burden. Discussed lab and imaging findings with patient. Discussed possibility of biliary colic versus musculoskeletal etiology versus irritable bowel r/t recent constipation. Discussed obtaining a right upper quadrant ultrasound, however patient and family politely declined at this time. Patient states he is ready to go home. He is not having significant pain at this time. States he will follow-up with his primary care doctor. Discussed low-fat diet, will prescribe additional short course of muscle relaxers for home, advised to take Tylenol as needed addition. Advised to call PCP office tomorrow. Given strict return precautions. Patient and family in agreement plan. Discharged in stable condition Medical Records Attestation: I reviewed the patient's medical records. Lab Data Attestation: I reviewed the patient's lab results. 08/31/25 18:33 08/31/25 18:33 Labs: Lab Results 08/31/25 08/31/25 Range/Units 18:33 19:01 WBC 7.8 (4.5-10.0) K/mm3 RBC 4.72 (4.6-6.20) M/mm3 Hgb 13.5 L (14.0-18.0) g/dL Hct 41.8 L (42.0-52.0) % MCV 88.6 (80-100) fl MCH 28.6 (26-34) pg MCHC 32.3 (32-36) g/dl RDW 13.8 (11.5-14.5) % Plt Count 192 (150-375) k/mm3 MPV 9.6 (7.4-10.4) fl Immature Gran % (Auto) 0.5 (0-0.5) % Neut % (Auto) 70.0 (45.5-73.1) % Lymph % (Auto) 15.0 L (18.3-44.2) % [place] % (Auto) 11.2 H (2.6-8.5) % Eos % (Auto) 2.8 (0-4.4) % Baso % (Auto) 0.5 (0.2-1.2) % Lymph # (Auto) 1.17 (0.9-3.2) K/mm3 [place] # (Auto) 0.9 H (0.1-0.6) K/mm3 Eos # (Auto) 0.2 (0-0.3) K/mm3 Baso # (Auto) 0.0 (0.0-0.1) K/mm3 Abs Immat Gran (auto) 0.04 H (0.00-0.031) K/mm3 Absolute Neuts (auto) 5.5 (1.3-6.7) K/mm3 Absolute Nucleated RBC 0.000 (0.0-0.012) K/mm3 Nucleated RBC % 0.0 (0.0-0.2) % Sodium 139 (137-145) mmol/L Potassium 5.0 (3.4-5.0) mmol/L Chloride 102 (98-107) mmol/L Carbon Dioxide 33 H (22-30) mmol/L Anion Gap 4 (4-12) mmol/L BUN 49 H (9-20) mg/dL Creatinine 2.03 H (0.7-1.3) mg/dL Estim Creat Clear Calc Not Reportable Estimated GFR 32 L (59 - ) Glucose 140 H (65-110) mg/dL Calcium 8.6 (8.4-10.2) mg/dL Total Bilirubin 1.0 (0.2-1.3) mg/dL AST 27 (17-59) U/L ALT 23 (6-50) U/L Alkaline Phosphatase 90 (38-126) U/L Total Protein 7.5 (6.3-8.2) g/dL Albumin 3.9 (3.5-5.1) g/dL Lipase 145 (23-300) U/L Urine Color Yellow (Yellow) Urine Appearance Clear (Clear) Urine pH 6.0 (5.0-9.0) Ur Specific [place] 1.015 (1.001-1.035) Urine Protein Negative (Negative) mg/dL Urine Glucose (UA) 3+ H (Negative) mg/dL Urine Ketones Negative (Negative) mg/dL Ur Blood (Man) Negative (Negative) Urine Nitrate Negative (Negative) Urine Bilirubin Negative (Negative) Urine Urobilinogen 0.2 (<2.0) mg/dL Leukocyte Esterase Rfl Negative (Negative) MAGALI/UL Imaging Data Attestation: I personally reviewed and interpreted this imaging study as follows: Radiologist's impression: ITS Impressions Abdomen/Pelvis CT 08/31/25 20:02 IMPRESSION: Right lung mass measures 3.9 cm with adjacent nodule measuring 1.5 cm suggestive of malignancy. There is colonic diverticulosis without evidence of acute diverticulitis. Heterogeneous prostate gland is noted. All CT scans at this facility are performed using low dose modulation techniques as appropriate to perform exam including the following: automated exposure control; use of iterative reconstruction technique; adjustment of the mA and/or kV according to patient size (this includes techniques or standardized protocols for targeted exams where dose is matched to indication/reason for exam). Discharge Plan Discharge Clinical Impression: Right upper quadrant abdominal pain Cholelithiasis Qualifiers: Cholelithiasis location: gallbladder Cholecystitis presence: without cholecystitis Biliary obstruction: without biliary obstruction Qualified Code(s): K80.20 - Calculus of gallbladder without cholecystitis without obstruction Patient Disposition: Home Condition: Stable Instructions: Antibiotic Form, Biliary Colic (ED), Gallstones (ED), Muscle Strain (ED) Additional Instructions: Continue Tylenol as needed for pain. You may use ice/heat, lidocaine patches to area of pain. Take muscle relaxers as needed and prescribed. Recommend taking these at night as they may cause sedation. Do not drive, operate heavy machinery, drink alcohol while on muscle relaxers as this may cause further sedation. Recommend following low fat diet, limited strenuous activity. Follow-up with your primary care doctor for further evaluation. Call office to make appointment. Return to the ED if you experience worsening or severe pain, fall or injury, shortness of breath, chest pain, unable to keep down food or drink, or any other symptoms of concern. Patient Language: [place] Citizen Prescriptions: New cyclobenzaprine 5 mg tablet 5 mg PO TID PRN (Reason: muscle spasm) Qty: 15 0RF lidocaine 5 % adhesive patch,medicated 1 patch topical DAILY Qty: 15 0RF Rx Instructions: leave on most painful area for up to 12 hrs No Action mecobalamin (vitamin B12) 500 mcg tablet,chewable 500 mcg PO DAILY rosuvastatin 40 mg tablet 40 mg PO DAILY fluticasone propionate [Flonase Allergy Relief] 50 mcg/actuation spray,suspension 2 spray intranasal DAILY PRN (Reason: nasal congestion) Qty: 16 0RF Rx Instructions: administer into each nostril bacitracin 500 unit/gram ointment 1 applic topical BID PRN (Reason: rash) Qty: 300 3RF magnesium glycinate 100 mg tablet 400 mg PO DAILY triamcinolone acetonide 0.1 % cream 1 applic topical QID Qty: 80 0RF tamsulosin 0.4 mg capsule PO tramadol 50 mg tablet 50 mg PO BID PRN (Reason: pain) Qty: 14 0RF cyclobenzaprine 10 mg tablet 10 mg PO BID PRN (Reason: muscle spasm) Qty: 14 0RF (DME) blood-glucose meter Misc See Rx Instructions .Route Qty: 1 0RF Rx Instructions: Use to check BS once daily acetaminophen 325 mg tablet 650 mg PO Q4H PRN (Reason: Pain) Qty: 60 1RF nebivolol [Bystolic] 20 mg tablet 20 mg PO DAILY Qty: 90 1RF Entresto 24-26 mg tablet 1 tablet PO BID Qty: 180 1RF mupirocin 2 % ointment 1 applic topical BID Qty: 22 2RF dapagliflozin propanediol [Farxiga] 10 mg tablet 10 mg PO QAM Qty: 90 1RF (DME) blood-glucose meter [Contour Plus Blue Meter] Misc See Rx Instructions .Route Qty: 1 0RF Rx Instructions: As directed (DME) Contour Plus Test Strip Strip See Rx Instructions .Route Qty: 200 1RF Rx Instructions: As directed BID AC and prn clobetasol 0.05 % cream 1 applic topical BID Qty: 60 1RF (DME) lancets [CareSens Lancets] 30 gauge misc See Rx Instructions .Route Qty: 200 3RF Rx Instructions: Use twice daily and PRN Eliquis 5 mg tablet See Rx Instructions .ROUTE .COMPLEX Qty: 180 1RF Dose Instruction: TAKE 1 TABLET BY MOUTH EVERY 12 HOURS Rx Instructions: TAKE 1 TABLET BY MOUTH EVERY 12 HOURS furosemide 40 mg tablet 40 mg PO DAILY Qty: 90 1RF Follow-up/Referrals: Fili Brown MD [Primary Care Provider, Family Practice] Time of Disposition: 21:43
--- NOTE | 2025-08-31 21:23 | PC.NURSE ---
pt 1 assist to bathroom
== END 2025-08-31 22:22 | disposition home or self-care (01) ==
PROVIDERS: Emergency Provider Physician Assistant; PCP Family Medicine
DX: K80.20 Calculus of gallbladder without cholecystitis without obstruction (principal); R10.11 Right upper quadrant pain; S22.32XD Fracture of one rib, left side, subsequent encounter for fracture with routine healing; I50.9 Heart failure, unspecified; I11.0 Hypertensive heart disease with heart failure; I48.91 Unspecified atrial fibrillation; I27.20 Pulmonary hypertension, unspecified; E78.5 Hyperlipidemia, unspecified; E53.9 Vitamin B deficiency, unspecified; E66.01 Morbid (severe) obesity due to excess calories; M10.9 Gout, unspecified; G47.33 Obstructive sleep apnea (adult) (pediatric); G62.9 Polyneuropathy, unspecified; Z66 Do not resuscitate; Z98.61 Coronary angioplasty status; Z86.718 Personal history of other venous thrombosis and embolism; Z87.891 Personal history of nicotine dependence; Z96.1 Presence of intraocular lens; Z98.49 Cataract extraction status, unspecified eye; Z79.899 Other long term (current) drug therapy; Z79.01 Long term (current) use of anticoagulants; R91.8 Other nonspecific abnormal finding of lung field; K57.90 Diverticulosis of intestine, part unspecified, without perforation or abscess without bleeding; X58.XXXD Exposure to other specified factors, subsequent encounter
CPT/HCPCS: 36415; 74177; 80053; 81003; 83690; 85025; 99284; Q9967